=== PATIENT | female | born 1940 | race Caucasian/White ===

== ENCOUNTER 2019-02-24 16:28 | Emergency (ER) | payer MEDICAID, MEDICARE, SELFPAY ==
[2019-02-24 16:30] VITALS: BP 133/74; PULSE 77; RESP 16; TEMP 37.2; O2SAT 98; BMI 25.0
--- NOTE | 2019-02-24 16:31 | RAD_ITS ---
STUDY: X-RAY - LEFT SHOULDER REASON FOR EXAM: Female, 78 years old. Trauma TECHNIQUE: 2 view(s) of the shoulder. COMPARISON: None. FINDINGS: There is a minimally impacted comminuted fracture of the left humeral head and neck. The glenoid labrum appears intact. Normal visualized pulmonary apex. RAD/Shoulder min 2 Views IMPRESSION: Minimally impacted comminuted fracture of the left humeral head and neck. Electronically Signed: Elvin Dallas MD at 16:52 EDT , Service support ,
--- NOTE | 2019-02-24 17:30 | ED.RN ---
SON AURORA NOTIFIED, HE WILL BE IN
--- NOTE | 2019-02-24 17:39 | ED.DCSUM_ITS ---
History of Present Illness Chief Complaint: Upper Extremity Injury Informant: Patient Occurred: Today Mechanism/Context: Fall Current Severity: Moderate Maximum Severity: Severe Worsened by: Palpation or attempt to move Relieved by: Nothing Associated Symptoms: Loss of Funtion. Negative for: Parasthesia, Weakness Narrative: Patient is an elderly [id number] woman who was walking down 2 steps from her porch. She fell onto her left shoulder. She denies head trauma or loss of conscious. She is on no anticoagulant. Denies neck pain. She denies paresthesia, anesthesia or motor weakness presently time of the fall. She denied cardiac respiratory symptoms. She denies black or maroon stool. Tetanus Immunization: 5-10 years Prior similar symptoms: No Recent Illness/Hospitalization: No - Past Medical History (1) History of endocarditis Status: Chronic (2) Liver transplanted Status: Chronic Comment: 1997 (3) Migraine Status: Chronic Past Medical History - Allergies and Home Meds Allergies/Adverse Reactions: Allergies No Known Allergies Allergy (Verified 02/24/19 16:29) Primary Care Physician: Shaq Williamson MD [Primary Care Provider] - Prior records reviewed: Yes Surgical History: - - hysterectomy (with oophorectomy x 1 secondary to DUB), liver transplant in 1997, heart surgery for vegetations post-liver txp, T+A. Lives: Alone Smoking Status: Never smoker Alcohol: None Review of Systems General: Denies: Chills, Fever, Malaise, Sweats Eyes: Denies: Visual changes - bilaterally, Blurred Vision - bilaterally, Diplopia ENT: Denies: Bilateral ear pain Cardiovascular: Denies: Chest pain, Palpitations, Heart racing Respiratory: Denies: Dyspnea, Cough, Sputum, Dyspnea on exertion Gastrointestinal: Denies: Abdominal pain, Nausea, Vomiting Musculoskeletal: Reports: Extremity Pain - Left shoulder pain. Denies: Myalgias, Arthralgias, Neck pain, Back pain, Swelling Skin: Reports: Abrasions. Denies: Rash Neurological: Denies: Headache, Weakness, Parasthesia, Numbness Hematologic: Denies: Easy bruising Physical Exam Vital Signs/Narrative: Vital Signs Temp Pulse Resp BP Pulse Ox 02/24/19 16:30 98.9 F 77 16 133/74 H 98 Inital Vital Signs reviewed: Yes Left Shoulder: Abrasion, Contusion, Deformity, Limited ROM, - - Pain to palpation proximal humerus.. Negative for: Edema, Hematoma Left Humerus: Negative for: Abrasion, Contusion, Deformity, Edema, Hematoma, Limited ROM, - - There is no pain the patient over the lateral medial epicondyle. Is no pain the patient reluctant to process. There is no pain the patient over the radial head. Left Elbow: Negative for: Abrasion, Contusion, Deformity, Edema, Hematoma, Limited ROM, - Left Forearm: Negative for: Abrasion, Contusion, Deformity, Edema, Hematoma, Limited ROM, - Left Wrist: Negative for: Abrasion, Contusion, Deformity, Edema, Hematoma, Limited ROM, - Left Hand: Negative for: Abrasion, Contusion, Deformity, Edema, Hematoma, Limited ROM, - Left Finger: Negative for: Abrasion, Contusion, Deformity, Edema, Hematoma, Limited ROM, - General: Well nourished, Well developed Head: Normocephalic, Atraumatic Eyes: Perrl, EOMI. Negative for: Pale conjunctiva, Scleral icterus, - ENT: No Trauma, Moist Mucous Membranes Neck: Nontender, Full ROM. Negative for: Spinal Tenderness Cardiovascular: Regular rate, Regular rhythm, No murmurs, Normal S1, Normal S2 Respiratory: No distress - Thank you, CTA bilaterally, Chest nontender Skin: Trauma - Abrasion noted for what. Near left shoulder Neurological: Alert, Oriented x3, Cranial nerves II-XII grossly intact, Normal Strength, Normal Sensation, - - Axillary, median, radial and ulnar function intact. Psychological: Normal affect Diagnostic/Tx/Re-eval Chest X-Ray - ED: Read by ED Physician 2 view x-ray left shoulder was obtained which reveals a nondisplaced proximal humeral fracture at the surgical neck. - Medical Decision Making Patient's history and physical exam is consistent with fracture. Will obtain x- ray to determine if there is a fracture versus contusion. Also determine appropriate follow-up. Patient was treated with sling and swath and referred to orthopedics. ED Disposition - Plan for ED Patient: Disposition: Home or Assisted Living Diagnosis: proximal humeral fracture initial encou Instructions: ED Fx Shoulder Prescriptions: Oxycodone [Oxyir] 5 mg PO Q4H PRN PRN 5 Days #30 tab PRN Reason: Shoulder pain Referrals: Shaq Williamson MD [Primary Care Provider] - Lorene Shea DO [STAFF PHYSICIAN] - 5-7 Days
[2019-02-24] MEDS: oxyCODONE 5 MG Tablet PO (18:07)
[2019-02-24 18:35] VITALS: BP 167/88; PULSE 80; RESP 16; O2SAT 100
== END 2019-02-24 18:41 | disposition home or self-care (01) ==
LOC: ED 18:32
PROVIDERS: Emergency Provider Emergency Medicine; Family Provider Internal Medicine; PCP Internal Medicine
DX: S42.215A Unspecified nondisplaced fracture of surgical neck of left humerus, initial encounter for closed fracture (principal); W10.8XXA Fall (on) (from) other stairs and steps, initial encounter; Y93.01 Activity, walking, marching and hiking; Y92.008 Other place in unspecified non-institutional (private) residence as the place of occurrence of the external cause; Z94.4 Liver transplant status
CPT/HCPCS: 73030; 99283

== ENCOUNTER 2020-06-07 09:31 | Observation (INO) | payer MEDICARE, MEDICAID, SELFPAY ==
[2020-06-07] VITALS (8 sets, daily range): BP systolic 124–200; BP diastolic 53–90; PULSE 72–92; RESP 16–22; TEMP 36.6–36.9; O2SAT 96–98; BMI 23.6; BMI 24.3
--- NOTE | 2020-06-07 09:39 | CT_ITS ---
STUDY: CT BRAIN WITHOUT CONTRAST REASON FOR EXAM: Female, 79 years old. DIZZY, N/V X 2-3 HRS HEAD OF ENGLISH, HX MIGRAINES, liver transplant RADIATION DOSAGE (If Supplied By Facility): CTDIvol = ( 44.99 ) mGy, DLP = ( 782.05 ) mGycm TECHNIQUE: Transaxial CT imaging of the brain was performed without administration of intravenous contrast material. Individualized dose optimization techniques were used for this CT. COMPARISON: Comparison is made with prior study dated 03/30/2013. FINDINGS: Normal soft tissue structures. Normal calvarium. There is mild cerebral atrophy with widening of the extra-axial spaces and ventricular dilatation. There are areas of decreased attenuation within the white matter tracts of the supratentorial brain, consistent with microvascular disease changes. Normal basal ganglia and thalami. Normal brainstem. Normal cerebellum. There is no intracranial hemorrhage. There are no findings of an acute ischemic infarction. Atherosclerotic calcification of the cavernous portions of the internal carotid arteries bilaterally. Normal visualized paranasal sinuses. CT/Brain/Head without Contrast IMPRESSION: Chronic involutional changes of the brain. Electronically Signed: Jacobo Garnica, at 10:37 EDT , Service support ,
--- NOTE | 2020-06-07 09:39 | EKG12_ITS ---
Test Reason : N AND VOMIT Blood Pressure : / mmHG Vent. Rate : 066 BPM Atrial Rate : 066 BPM P-R Int : 174 ms QRS Dur : 122 ms QT Int : 464 ms P-R-T Axes : 044 009 068 degrees QTc Int : 486 ms Normal sinus rhythm Right bundle branch block Inferior infarct , age undetermined Nonspecific T wave abnormality Abnormal ECG Confirmed by CHANDANA LICONA, JOSE GUADALUPE ([id number]), electronic news gathering editor CHRISSY AYALA ([id number]) on 06/13/2020 9:12:23 AM Referred By: DC Confirmed By:JOSE GUADALUPE ELLINGTON MD
--- NOTE | 2020-06-07 09:47 | RAD_ITS ---
STUDY: X-RAY CHEST REASON FOR EXAM: Female, 79 years old. Nausea and vomiting with dizziness for 2-3 hours TECHNIQUE: Single AP portable view of the chest. COMPARISON: Comparison is made with prior study dated 03/04/2015. FINDINGS: EKG electrodes are seen. Stable mild increased markings at the lung bases slightly more prominent on the right side suggestive of bibasilar scarring. There is no demonstrated pleural abnormality. Sternal cerclage wires and vascular clips are present from a prior sternotomy and coronary artery bypass graft procedure (CABG). Normal mediastinum and tono. Normal visualized pulmonary arteries. Normal visualized aortic arch and descending thoracic aorta. Normal visualized thoracic spine. There is degenerative osteoarthritis of the bilateral shoulders. Healed fracture of the left surgical neck of the humerus. Healed right rib fractures. There is no demonstrated abnormality of the visualized soft tissue structures of the upper abdomen. RAD/Chest 1 View IMPRESSION: Mild increased markings of the lung bases slightly more prominent on the right side. This is unchanged from prior examination and most likely SCARRING. Electronically Signed: Jacobo Garnica, at 10:16 EDT , Service support ,
[2020-06-07 09:57] LABS: Absolute Lymphocyte Count 1.05 X10^3/uL (0.83-4.51); Absolute Neutrophil Count 4.2 X10^3/uL (2.0-7.7); Basophil# 0.05 X10^3/uL; Basophil% 0.8 % (0-1); Eosinophil# 0.14 X10^3/uL; Eosinophils% 2.4 % (0-5); Hematocrit 43.5 % (37-47); Hemoglobin 14.1 g/dL (12.0-15.0); Lymphocyte # 1.05 X10^3/ul (4.0); Lymphocyte % 17.6 % (19-41); Mean Corp Hgb Conc 32.4 g/dL (32-36); Mean Corpuscular Hgb 30.7 pg (27.0-32.0); Mean Corpuscular Volume 94.8 fL (81-99); Monocyte# 0.52 X10^3/uL; Monocyte% 8.7 % (0-10); NRBC Flagged by Analyzer 0 % (0-5); Neutrophil # 4.17 X10^3/uL (2.7-7.7); Neutrophil % 70.2 % (47-70); Platelet Count 168 K/mm3 (150-450); RBC Distribution Width CV 14.2 % (11.6-14.6); RBC Distribution Width SD 48.9 fl (35.1-43.9); Red Blood Count 4.59 M/mm3 (4.2-5.4)
[2020-06-07] MEDS: Ondansetron 4 MG/2 ML Vial IV (09:58)
[2020-06-07] MEDS: Labetalol (Compound) 20 MG/4 ML SYRINGE 10 MG IV (09:58)
[2020-06-07 10:10] LABS: Prothrombin Time (Protime)PT. 12.4 SECONDS (11.7-14.9)
[2020-06-07 10:11] LABS: Bacteria 0 SEEN /hpf (None Seen); Mucous, Urine 0 SEEN /hpf (<or=2+); Red Blood Cells-Urine 0 SEEN /hpf (0-5); Squamous Epithelial Cells - UA 0 SEEN /hpf (5-10); White Blood Cells 0 SEEN /hpf (0-5)
[2020-06-07 10:12] LABS: Partial Thromboplast Time 29.2 Seconds (24.1-36.2)
[2020-06-07 10:12] LABS: Color, Urine Yellow (Yellow); Glucose, Dipstick Normal (Normal); Ketone-Dipstick Negative (Negative); Leukocyte Esterase-Dipstick Negative /ul (Negative); Nitrite-Dipstick Negative (Negative); Occult Blood-Urine Negative /ul (Negative); Protein-Dipstick Negative (Negative); Urine Bilirubin Dipstick Negative (Negative); Urine Clarity Clear (Clear); Urine Urobilinogen Normal (Normal)
[2020-06-07 10:17] LABS: Anion Gap 4 (5-15); BUN 23 mg/dL (7-18); BUN/Creat Ratio 20.4 RATIO (10-20); Chloride 108 mmol/L (98-107); Creatinine, Serum 1.13 mg/dL (0.55-1.02); EST Glomerular Filtration Rate 49 mL/min (>60); Est Glom Filt Rate - Afr Amer 59 mL/min (>60); Estimated Creatinine Clearance 32.67 ml/min; Glucose 102 mg/dL (74-106); Potassium 4.7 mmol/L (3.5-5.1); Sodium Level 139 mmol/L (136-145)
--- NOTE | 2020-06-07 11:17 | NURSING ---
DR SOTO IN ROOM
--- NOTE | 2020-06-07 11:24 | ED.VISSUMM ---
- ER Visit Summary Date of Service: 06/07/20 Chief Complaint: Dizziness History of Present Illness: The patient is a 79 F who woke up this morning with dizziness. She felt like the room was spinning. Associated with nausea and vomiting. She had difficulty walking. Denied any vision changes, facial droop, speech changes, weakness, numbness. Physical Examination: Blood pressure 200/90. Otherwise vitals unremarkable. HEENT exam unremarkable. Heart regular. Lungs clear. Cranial nerves grossly intact. Normal strength and sensation. Normal cerebellar testing. Test Results: EKG showed sinus rhythm at a rate of [address] and T wave changes. Right bundle branch block pattern noted. Chest x-ray shows chronic changes. CT brain shows chronic changes. CBC normal. BMP unremarkable. Coags normal. Urinalysis normal. Troponin normal. Emergency Department Course and Treatment: Patient treated with IV fluids, Zofran, labetalol. Repeat blood pressure 140/65. Patient still has some dizziness and headache. Given her age, symptoms, safety concerns, the hospitalist was contacted for further inpatient evaluation. Treatment Plan: As above Disposition: PCU Impression: Vertigo, hypertension This note was generated with [employer] dictation software. It may contain incorrect words, spelling, and punctuation that were not noted in review of the chart prior to signing ED Disposition - Plan for ED Patient: Referrals: Shaq Williamson MD [Primary Care Provider] -
--- NOTE | 2020-06-07 11:27 | NURSING ---
PCU OBS BRITTANY VERTIGO, HYPERTENSION
--- NOTE | 2020-06-07 12:33 | HP.PCM_ITS ---
Problem List (1) Vertigo Status: Acute History of Present Illness Date of Admission: 06/07/20 Chief Complaint: dizziness The patient is a 79 year old F awoke with dizziness this AM. Worse with movement. Never had this before. Some nausea. Presented to ED where she had a head CT, that was negative. Currently feeling somewhat better. [] Past Medical History Past Medical History (Chronic Problems): Chronic Problems Tachycardia (Chronic) History of endocarditis (Chronic) Migraine (Chronic) Generalized osteoarthritis (Chronic) Anisocoria (Chronic) Liver transplanted (Chronic) 1997 Allergies No Known Allergies Allergy (Verified 06/07/20 09:37) Home Medications: Ambulatory Orders Medication Instructions Recorded Tacrolimus Anhydrous [Prograf] 1 mg PO BID 09/09/13 Metoprolol Succinate 50 mg PO DAILY 06/07/20 Surgical History: - - hysterectomy (with oophorectomy x 1 secondary to DUB), liver transplant in 1997, heart surgery for vegetations post-liver txp, T+A. 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: dysfunctional uterine bld Smoking Status: Never smoker Tobacco Use: Non-smoker Alcohol: None - *Family History Maternal History Items: Heart Disease Review of Systems Constitutional: Denies: Anorexia, Chills, Fever, Night Sweats Eyes: Denies: Blurred vision, Double vision HEENT: Denies: Head Aches, Sinus Congestion, Sinus Drainage Cardiovascular: Denies: Chest Pain, Palpitations Respiratory: Denies: Cough, Shortness of breath at rest, Sputum production Gastrointestinal: Denies: Abdominal Pain, Nausea, Vomiting Genitourinary: Denies: Dysuria Musculoskeletal: Denies: Joint Pain, Joint Tenderness Skin: Denies: Dryness, Jaundice Neurological: Reports: Balance problems, Headaches. Denies: Double vision, Numbness Psychiatric: Denies: Anxiety, Depression Hematologic/ Lymphatic: Denies: Easy Bruising, Easy Bleeding, Hx of blood clot Comment: All review of systems were negative except as mentioned above in the history of present illness and the other review of systems. VTE Information - Inpt Only VTE Present on Admission: No VTE Mechan Device Prophylaxis: None VTE Pharm Prophylaxis ordered?: No Reason prophylaxis not ordered:: Treatment Not Indicated Patient Problems: Active and Suspected Problems Vertigo (Acute) - Physical Exam Vitals/I&O's: Vital Signs Temp Pulse Resp BP Pulse Ox 36.6 C 80 16 140/65 H 98 06/07/20 11:24 06/07/20 11:24 06/07/20 11:24 06/07/20 11:24 06/07/20 11:24 Oxygen Delivery Method Room Air Weight: 53 kg Body Mass Index (BMI) 23.6 Intake and Output for Last 24 Hours 06/05/20 06/06/20 06/07/20 23:59 23:59 23:59 Intake Total 500 / 500 Balance 500 / 500 General: Alert, Oriented x3, Cooperative, No apparent distress HEENT: Atraumatic, PERRLA, EOMI - lateral nystagmus, Normocephalic Oral: Moist Mucosa, No Gingival or Mucosal Lesions/ Ulcerations Neck: No Nodes, Thyroid Normal Size and Texture Lungs: Clear to auscultation, Normal air movement, No rhonchi, No wheeze, No rales, Diminished Cardiovascular: Regular rate, Regular Rhythm, Normal S1, Normal S2, No murmurs Abdomen: Bowel Sounds Present, Soft, Non Tender, Non-Distended, No Hepato- splenomegaly Extremities: No edema, No Calf Tenderness Skin: No rashes, No breakdown Musculoskeletal: No Tenderness to Palpation of Joints or Extremities, No Muscle Wasting Neurological: Cranial nerves II-XII grossly intact, Motor Exam 5/5 strength throughout Psych/Mental Status: Normal Affect, Appropriate Laboratory Results 06/07/20 09:30: Urine Color Yellow, Urine Clarity Clear, Urine pH 8.0, Ur Specific [place] 1.010, Urine Protein Negative, Urine Glucose (UA) Normal, Urine Ketones Negative, Urine Occult Blood Negative, Urine Nitrite Negative, Urine Bilirubin Negative, Urine Urobilinogen Normal, Ur Leukocyte Esterase Negative, Urine RBC 0 SEEN, Urine WBC 0 SEEN, Ur Squamous Epith Cells 0 SEEN, Urine Bacteria 0 SEEN, Urine Mucus 0 SEEN 06/07/20 09:50: WBC 6.0, RBC 4.59, Hgb 14.1, Hct 43.5, MCV 94.8, MCH 30.7, MCHC 32.4, RDW Std Deviation 48.9 H, RDW Coeff of Noe 14.2, Plt Count 168, MPV 10.0, Immature Gran % (Auto) 0.300, Neut % (Auto) 70.2 H, Lymph % (Auto) 17.6 L, Mcleod % (Auto) 8.7, Eos % (Auto) 2.4, Baso % (Auto) 0.8, Absolute Neuts (auto) 4.2, Absolute Lymphs (auto) 1.05, Nucleated RBC % 0 06/07/20 09:50: PT 12.4, INR 1.0, APTT 29.2 06/07/20 09:50: Sodium 139, Potassium 4.7, Chloride 108 H, Carbon Dioxide 27.0, Anion Gap 4 L, BUN 23 H, Creatinine 1.13 H, Estim Creat Clear Calc 32.67, Est GFR (MDRD) Af Amer 59 L, Est GFR (MDRD) Non-Af 49 L, BUN/Creatinine Ratio 20.4 H , Glucose 102, Calcium 9.0, Troponin I < 0.015 EKG: NSR, incomplete RBBB Clinical Impression(s) from Imaging Studies Brain CT 06/07/20 09:39 IMPRESSION: Chronic involutional changes of the brain. Electronically Signed: Jacobo Garnica, at 10:37 EDT , Service support , Chest X-Ray 06/07/20 09:47 IMPRESSION: Mild increased markings of the lung bases slightly more prominent on the right side. This is unchanged from prior examination and most likely SCARRING. Electronically Signed: Jacobo Garnica, at 10:16 EDT , Service support , Current Medications Sodium Chloride () 500 mls @ 999 mls/hr IV .Q31M ONE Last Infusion: 06/07/20 11:34 Dose: Infused Documented by: Assessment/Plan All Active Problems Vertigo (Acute) Chest pain (Acute) Cephalalgia (Resolved) 1. acute vertigo: suspect BPPV. add PRN meclizine. PT for vestibular rehab. No evidence of CVA on CT. No additional CVA work up at this time. 2. VTE prophylaxis: not indicated given observation status. 3. Advanced care planning: DW patient, full code. OBSV E&M: [id number] Initial observation care L3
[2020-06-07] MEDS: Acetaminophen 325 MG Tablet 650 MG PO ×2 (14:58→21:14)
[2020-06-07] MEDS: Tacrolimus Anhydrous 1 MG Capsule PO (21:14)
[2020-06-08 03:00] VITALS: PULSE 65
[2020-06-08 03:10] VITALS: BP 123/56; PULSE 71; RESP 16; TEMP 36.8; O2SAT 97
[2020-06-08] MEDS: Acetaminophen 325 MG Tablet 650 MG PO (05:26)
[2020-06-08 07:00] VITALS: PULSE 92
[2020-06-08 09:10] VITALS: BP 131/62; PULSE 74; RESP 18; TEMP 36.9; O2SAT 95
[2020-06-08 09:22] VITALS: BP 131/62; PULSE 74
[2020-06-08] MEDS: Metoprolol(XL)Succ 50 MG Tablet PO (09:22)
[2020-06-08] MEDS: Tacrolimus Anhydrous 1 MG Capsule PO (09:22)
--- NOTE | 2020-06-08 10:27 | DCINST_ITS ---
- Discharge Diagnoses Current Active Problems: Current Active and Chronic Problems Vertigo (Acute) You will use the following diet at home:: No restrictions Call your doctor if you observe: - - recurrent dizziness Allergies/Adverse Reactions: Allergies No Known Allergies Allergy (Verified 06/07/20 09:37) Medications to take at Discharge Tacrolimus Anhydrous [Prograf] 1 mg PO BID 09/09/13 Aspirin [Aspirin, Baby] 1 tab PO DAILY 06/07/20 Metoprolol Succinate 50 mg PO DAILY 06/07/20 Meclizine HCl [Antivert] 25 mg PO 4X/DAY PRN PRN #20 tab 06/08/20 The following prescriptions were given: Meclizine HCl [Antivert] 25 mg PO 4X/DAY PRN PRN #20 tab PRN Reason: Vertigo Transmission Status[facility] Orders to be completed after discharge: Physical Therapy Evaluation Time Frame: 2 Weeks, Location: None Selected Primary Care Physician: Shaq Williamson MD [Primary Care Provider] - Within 2 Weeks Test Results: Test results from this visit will be discussed in further detail at your follow- up appointment, if applicable. Proposed Discharge Date: 06/08/20
--- NOTE | 2020-06-08 10:28 | DS.PCM_ITS ---
Discharge Date and Diagnosis - Problem List Patient Problems: Active and Suspected Problems Vertigo (Acute) Date of Admission: 06/07/20 Date of Discharge: 06/08/20 - Primary Discharge Diagnosis Acute Problems: Active Problems Vertigo (Acute) - Secondary Discharge Diagnosis Chronic Problems: Chronic Problems Tachycardia (Chronic) History of endocarditis (Chronic) Migraine (Chronic) Generalized osteoarthritis (Chronic) Anisocoria (Chronic) Liver transplanted (Chronic) 1997 Hospital Course and Treatment Imaging Results: Clinical Impression(s) from Imaging Studies Brain CT 06/07/20 09:39 IMPRESSION: Chronic involutional changes of the brain. Electronically Signed: Jacobo Garnica, at 10:37 EDT , Service support , Chest X-Ray 06/07/20 09:47 IMPRESSION: Mild increased markings of the lung bases slightly more prominent on the right side. This is unchanged from prior examination and most likely SCARRING. Electronically Signed: Jacobo Garnica, at 10:16 EDT , Service support , Operations: None Procedures: None Summary of Care Provided: The patient is a 79 year old F with acute onset vertigo that began early in the morning on the fourth. Patient was just having dizziness. Presented to the emergency room where she had a head CT that showed no acute process. Patient still having ongoing symptoms and patient was subsequently admitted for further monitoring. Exam was consistent with benign paroxysmal positional vertigo and had a positive [place]-Hallpike. Symptoms did improve though are still persistent later in the day on the fourth and so the decision was to observe the patient overnight. Today the patient feels much better no further dizziness just feels tired. Patient can follow-up with physical therapy as needed for vestibular rehab. Patient will be given a prescription for meclizine to take as needed for vertigo. Is explained to the patient the process involved in regards to benign paroxysmal positional vertigo and the treatment modalities. Patient advised that the meclizine would not fix the vertigo but may make her symptoms more tole rable. On exam, patient does continue to have nystagmus on the right but it is resolved on the left. She is awake alert and oriented. No acute distress. [] Patient Problems: Active and Suspected Problems Vertigo (Acute) - Physical Exam Vitals/I&O's: Vital Signs Temp Pulse Resp BP Pulse Ox 36.9 C 74 18 131/62 H 95 06/08/20 09:10 06/08/20 09:22 06/08/20 09:10 06/08/20 09:22 06/08/20 09:10 Oxygen Delivery Method Room Air Weight: 50.9 kg Body Mass Index (BMI) 24.3 Intake and Output for Last 24 Hours 06/06/20 06/07/20 06/08/20 23:59 23:59 23:59 Intake Total 890 / 890 100 / 100 Balance 890 / 890 100 / 100 Current Medications Acetaminophen (Tylenol) 650 mg PO Q6H PRN PRN PRN Reason: Pain Score 1-10/Temp > 100.7 F Last Admin: 06/08/20 05:26 Dose: 650 mg Documented by: Sodium Chloride () 500 mls @ 999 mls/hr IV .Q31M ONE Last Infusion: 06/07/20 11:34 Dose: Infused Documented by: Sodium Chloride () 250 mls @ 15 mls/hr IV .[id number] PRN PRN Reason: Saline Flush Sodium Chloride () 250 mls @ 15 mls/hr IV .[id number] PRN PRN Reason: Additional IVPB Infusion Meclizine HCl (Antivert) 25 mg PO 4X/DAY PRN PRN PRN Reason: Vertigo Metoprolol Succinate (Toprol Xl (Beta Elli)) 50 mg PO DAILY [facility] Last Admin: 06/08/20 09:22 Dose: 50 mg Documented by: Ondansetron HCl (Zofran) 4 mg IV Q8H PRN PRN PRN Reason: NAUSEA/VOMITING Sodium Chloride () 10 - 40 ml IV UD PRN PRN Reason: SALINE FLUSH Tacrolimus (Prograf) 1 mg PO BID [facility] Last Admin: 06/08/20 09:22 Dose: 1 mg Documented by: Discharge Diet: No Restrictions Discharge Activity: Return to Normal Activity Call your doctor if you observe: - - recurrent dizziness Home Medications: Medications to take at Discharge Tacrolimus Anhydrous [Prograf] 1 mg PO BID 09/09/13 Aspirin [Aspirin, Baby] 1 tab PO DAILY 06/07/20 Metoprolol Succinate 50 mg PO DAILY 06/07/20 Meclizine HCl [Antivert] 25 mg PO 4X/DAY PRN PRN #20 tab 06/08/20 Following Prescriptions Were Given to Patient: Meclizine HCl [Antivert] 25 mg PO 4X/DAY PRN PRN #20 tab PRN Reason: Vertigo Transmission Status: Pending to [facility] Other Amb Orders: Physical Therapy Evaluation Time Frame: 2 Weeks, Location: None Selected Primary Care Physician: Shaq Williamson MD [Primary Care Provider] - Within 2 Weeks Disposition: Home Minutes spent on discharge:: 289 Patient Condition:: Good Medical Necessity - Tobacco Use Smoking Status: Never smoker Tobacco Use: Non-smoker Meaningful Use Info Meaningful Use Diagnoses (Choose all that apply): None applicable OBSV E&M: 29858 Observation care discharge
--- NOTE | 2020-06-08 10:42 | CASEMGMT ---
SHE LESLIE NOTE: Pt being discharged. Per Dr Ziegler, pt would benefit from vestibular therapy. RN CM to room to talk with pt/discuss discharge planning. Pt resting in bed and @ bedside. Introduced self and role of SHE LESLIE. Pt states she lives in a one-story home w/3 steps to enter. States she has a cane and a shower chair. Denies needing any additional DME. Denies need for HHC. Pt made aware of Dr Ziegler's recommendations for vestibular therapy and pt agreeable. She states she has went to [facility] in the past. Call placed to [facility] and they stated they do not specialize in Vestibular therapy. Pt made aware and made aware [facility] does specialize in this. She states she would like to go to [facility]. Script for PT/vestibular therapy obtained from Dr Ziegler and faxed to [facility] at this time. Pt states her may not be able/want to take her to all of her appts @ [facility]. She was made aware of [facility] Van transportation and provided with there contact information. Pt denies having any concerns w/going home @ discharge and denies further needs. She voices appreciation of care received @ [facility]. Oz MCMULLEN RN, CM
--- NOTE | 2020-06-08 10:46 | PHA.DC.MC ---
Pharmacy Service has performed discharge medication reconciliation and counseling for this patient. 1. MECLIZINE 25MG 1T PO 4X/DAY PRN VERTIGO The patient's discharge medication list was reviewed for discrepancies and discrepancies were resolved. Home Medications Tacrolimus Anhydrous [Prograf] 1 mg PO BID 09/09/13 Aspirin [Aspirin, Baby] 1 tab PO DAILY 06/07/20 Metoprolol Succinate 50 mg PO DAILY 06/07/20 Meclizine HCl [Antivert] 25 mg PO 4X/DAY PRN PRN #20 tab 06/08/20 The patient was counseled on the following discharge medications and changes in medications for homegoing were reviewed. The Reason for Use, instructions for use, and potential side effects were reviewed for all new medications. The patient's questions regarding all of their medications were answered. The patient was able to verbally demonstrate an understanding of their discharge medications. Patient was counseled by retail pharmacy technicianGus.
[2020-06-08 11:17] VITALS: BP 131/62; PULSE 74; RESP 18; TEMP 36.9; O2SAT 95
== END 2020-06-08 10:27 | disposition home or self-care (01) ==
LOC: ED 10:51 → PCU 11:51
PROVIDERS: Emergency Provider Emergency Medicine; PCP Internal Medicine
DX: R42 Dizziness and giddiness (principal); M15.9 Polyosteoarthritis, unspecified; I10 Essential (primary) hypertension; I45.10 Unspecified right bundle-branch block; R94.31 Abnormal electrocardiogram [ECG] [EKG]; H55.00 Unspecified nystagmus; R00.0 Tachycardia, unspecified; R11.2 Nausea with vomiting, unspecified; Z94.4 Liver transplant status; Z79.899 Other long term (current) drug therapy; Z79.82 Long term (current) use of aspirin; Z86.79 Personal history of other diseases of the circulatory system; R26.2 Difficulty in walking, not elsewhere classified; R07.9 Chest pain, unspecified
CPT/HCPCS: 70450; 71045; 80048; 81001; 84484; 85025; 85610; 85730; 93005; 96361; 96374; 96375; 97110; 97161; 99218; 99285; J7040; A4216; G0378; J2405

== ENCOUNTER → 2020-06-27 11:54 | Outpatient (CLI) | payer MEDICARE, MEDICAID, SELFPAY ==
[2020-06-07 12:41] VITALS: BMI 24.3
[2020-06-27 15:59] LABS: Absolute Neutrophil Count 2.3 X10^3/uL (2.0-7.7); Basophil# 0.03 X10^3/uL; Basophil% 0.7 % (0-1); Eosinophil# 0.12 X10^3/uL; Eosinophils% 2.7 % (0-5); Hematocrit 44.2 % (37-47); Hemoglobin 14.3 g/dL (12.0-15.0); Lymphocyte % 29.6 % (19-41); Mean Corp Hgb Conc 32.4 g/dL (32-36); Mean Corpuscular Hgb 30.6 pg (27.0-32.0); Mean Corpuscular Volume 94.4 fL (81-99); Monocyte% 13.7 % (0-10); NRBC Flagged by Analyzer 0 % (0-5); Neutrophil # 2.33 X10^3/uL (2.7-7.7); Neutrophil % 53.1 % (47-70); Platelet Count 197 K/mm3 (150-450); RBC Distribution Width CV 14.2 % (11.6-14.6); RBC Distribution Width SD 49.2 fl (35.1-43.9); Red Blood Count 4.68 M/mm3 (4.2-5.4); White Blood Count 4.4 K/mm3 (4.4-11.0)
[2020-06-27 16:27] LABS: ALB/GLOB Ratio 0.9 RATIO (0.9-2.4); AST(SGOT) 40 U/L (15-37); Alanine Aminotransfer ALT/SGPT 30 U/L (13-56); Albumin, Serum 3.6 g/dL (3.2-5.0); Alkaline Phosphatase 67 U/L (45-117); Anion Gap 4 (5-15); BUN 24 mg/dL (7-18); BUN/Creat Ratio 17.5 RATIO (10-20); Calcium,Total 9.1 mg/dL (8.5-10.1); Chloride 107 mmol/L (98-107); Creatinine, Serum 1.37 mg/dL (0.55-1.02); EST Glomerular Filtration Rate 39 mL/min (>60); Est Glom Filt Rate - Afr Amer 48 mL/min (>60); Globulin 4.1 g/dL (2.2-4.2); Glucose 91 mg/dL (74-106); Potassium 4.2 mmol/L (3.5-5.1); Protein, Total 7.7 g/dL (6.4-8.2); Sodium Level 137 mmol/L (136-145)
== END ==
PROVIDERS: PCP Internal Medicine; Referring Provider Dermatology Pediatric Dermatology; Visit Provider Dermatology Pediatric Dermatology
DX: L20.89 Other atopic dermatitis (principal); L28.1 Prurigo nodularis; Z79.899 Other long term (current) drug therapy
CPT/HCPCS: 36415; 80053; 85025

== ENCOUNTER 2020-07-12 12:51 | Outpatient (RCR) | payer MEDICARE, SELFPAY ==
[2020-06-07 12:41] VITALS: BMI 24.3
--- NOTE | 2020-07-12 13:52 | HP.PTEVAL_ITS ---
Patient's Visit Information DANIEL ARREOLA is a 79 year old F referred to Physical Therapy by Dr. 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 Date of Evaluation: 07/12/20 Physical Therapist: Shad Alvarez, DPT, OCS, CSCS - Visit Plan Frequency: 1x/Week Duration: 4-6 Weeks Plan: weekly x 2-6 for progression of adaptationa nd habituation ex as needed. - Subjective Dizzy for 3 weeks. Got up out of bed and got very dizzy. Called squad, went to ER adn had multiple scans of head and heart adn no problems. dizzyness lasted for a day or so. In hospital for 2 days and got better. Moved only with nurses. Home two days later adn was fine. Was good for 2 weeks. Saw [place] who checked crystals and was good. Dizzyness came back two days ago. Got out of bed and spun and lasted short time. Currently head hurts with quick movements. Still spins for unknown reason. Sleep is OK right now. Not employed. Spends day taking care of house and yard and has not been real good at that lately. Basic aDLs are getting done. Scared to do some things as she does nto wish to get dizzy. No neuropathy, no falls, no pain. Head feels heavy all the time. - Objective Walks slow but steady, hesitant to move head. Trasnfers normal bed and chair. Steps are reciprocal with one rail. Cervical aROM is stiff but painfree and functional. - B hallpike makayla. - roll test. Oculaomotor: no nystagmus with gaze or head shake. - skew eye deviations. - ocular tilt. Pursuit and saccades are slow and asymptomatic. VOR is slow and challenging quality martinez for patinet but no symptoms increase. + L head thrust slightly. - Balance Scores Functional Gait Assessment Score: 24 % Disability: 20.0000 - Goals Goal 1:: Pt feel 95% back to normal and no spinning. Goal Time Frame: 4-6 Weeks Goal 2:: I management of condition and back to all normal activities including outdoor work. 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 For the Purpose of:: To increase tolerance to activity/condition/position Thank you for the opportunity to evaluate your patient. For Medicare and Medicare HMO plans, please review the plan of care and approve it. It will need to be FAXED BACK to us at [phone] for Medicare purposes. For Medicare only, by signing this I certify the plan of care. Please let me know if there are questions or concerns regarding this plan of care. Physician Si gnature: Date:
--- NOTE | 2020-09-20 15:28 | HP.PT.NRP ---
DANIEL ARREOLA was seen in my office for initial evaluation on 07/12/20. The following Plan of Care was established for this patient: Initial Frequency: 1x/Week Initial Duration: 4-6 Weeks Patient/Client Instruction: Educate patient on: Condition, Plan of Care For the Purpose of:: To increase tolerance to activity/condition/position For the Purpose of:: To increase tolerance to activity/condition/position This patient was last seen in our office 07/12/20. Pertinent comments regarding their Physical therapy will appear below: Pt seen for one evaluation and POC established/HEP given. She was to return weekly for 4-6 weeks but did not return. at this point, it has been over 3 months and I will discontinue due to nonattendance. At this point I will be discontinuing this patient from physical therapy. I would be happy to see this patient again in the future if found appropriate by the physician. Thank you! Shad Alvarez, DPT, OCS, CSCS
== END 2020-07-12 19:00 | disposition home or self-care (01) ==
LOC: PT 12:51
PROVIDERS: PCP Internal Medicine; Referring Provider Otolaryngology; Visit Provider Otolaryngology
DX: R42 Dizziness and giddiness (principal)
CPT/HCPCS: 97162

== ENCOUNTER 2020-10-23 16:15 | Emergency (ER) | payer MEDICARE, SELFPAY ==
[2020-06-07 12:41] VITALS: BMI 24.3
[2020-10-23 16:16] VITALS: BP 184/84; PULSE 99; RESP 18; TEMP 37.3; O2SAT 95; BMI 24.4
[2020-10-23 16:18] VITALS: BP 184/84; PULSE 99; RESP 18; TEMP 37.3; O2SAT 95
--- NOTE | 2020-10-23 16:26 | ED.VIS.GEN ---
History of Present Illness Chief Complaint: Chest Pain Narrative: Patient is an 79-year-old female who presents with generalized malaise. She states she just has not felt well for about 1 week but it was much worse this morning. She complains of generalized weakness. She complains of headache and neck pain. She denies fevers vomiting or diarrhea. Initially she had denied any pain except her head and neck. Triage note had noted she complained of chest pain radiating through to the back. When specifically asked about this she states that she does also have some pain in the middle of her upper back but denies chest pain. She does state that at times her chest feels heavy or that her breathing is a little heavy. She denies congestion rhinorrhea sore throat. She denies any cough. She denies sick contacts. She is a liver transplant patient. Past Medical History - Allergies and Home Meds Allergies/Adverse Reactions: Allergies No Known Allergies Allergy (Verified 10/23/20 16:18) Primary Care Physician: Shaq Williamson MD [Primary Care Provider] - Past Medical History: - - Liver transplant, hypertension Surgical History: - - hysterectomy (with oophorectomy x 1 secondary to DUB), liver transplant in 1997, heart surgery for vegetations post-liver txp, T+A. Smoking Status: Never smoker - Family History Maternal Family History: Reports: Heart Disease Review of Systems All systems negative except as indicated General: Denies: Fever Eyes: Denies: Visual changes - bilaterally ENT: Denies: Bilateral ear pain Cardiovascular: Denies: Chest pain Respiratory: Reports: Dyspnea. Denies: Cough Gastrointestinal: Denies: Abdominal pain, Nausea, Vomiting, Diarrhea Musculoskeletal: Reports: Neck pain, Back pain. Denies: Myalgias, Arthralgias Skin: Denies: Rash Neurological: Reports: Headache Hematologic: Denies: Easy bruising Allergy: Denies: Uticaria Physical Exam Vital Signs/Narrative: Vital Signs Temp Pulse Resp BP Pulse Ox 10/23/20 16:16 99.1 F 99 18 184/84 H 95 Inital Vital Signs reviewed: Yes General: Well nourished Head: Normocephalic Eyes: EOMI ENT: Moist mucous membranes Neck: Supple Cardiovascular: Regular rate, Regular rhythm Respiratory: No distress, CTA bilaterally. 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 Electronically Signed: Alex Williamson MD at 17:05 EST , Service support , 10/23/20 16:41 Chest 1 View (Portable) [RAD] Stat 10/23/20 17:35 Mucosa - Nose SARS-CoV-2 Antigen (Rapid) - Final Laboratory Results 10/23/20 10/23/20 10/23/20 16:20 16:20 17:38 WBC 6.4 RBC 4.62 Hgb 14.1 Hct 43.5 MCV 94.2 MCH 30.5 MCHC 32.4 RDW Std Deviation 49.0 H RDW Coeff of Noe 14.2 Plt Count 197 MPV 11.0 Immature Gran % (Auto) 0.200 Neut % (Auto) 66.8 Lymph % (Auto) 17.6 L [place] % (Auto) 14.2 H Eos % (Auto) 0.6 Baso % (Auto) 0.6 Absolute Neuts (auto) 4.3 Absolute Lymphs (auto) 1.12 Nucleated RBC % 0 Sodium 137 Potassium 4.3 Chloride 106 Carbon Dioxide 26.0 Anion Gap 5 BUN 26 H Creatinine 1.43 H Estim Creat Clear Calc 22.16 Est GFR (MDRD) Af Amer 45 L Est GFR (MDRD) Non-Af 37 L BUN/Creatinine Ratio 18.2 Glucose 183 H Calcium 8.9 Total Bilirubin 0.60 AST 25 ALT 20 Alkaline Phosphatase 76 Troponin I < 0.015 Total Protein 8.1 Albumin 3.4 Globulin 4.7 H Albumin/Globulin Ratio 0.7 L Urine Color Yellow Urine Clarity Sl Cldy Urine pH 5.0 Ur Specific [place] 1.015 U Specif Grav (Refrac) TNP Urine Protein Negative Urine Glucose (UA) 100 H Urine Ketones Negative Urine Occult Blood Negative Urine Nitrite Negative Urine Bilirubin Negative Urine Urobilinogen Normal Ur Leukocyte Esterase 100 H Urine RBC 0 SEEN Urine WBC 5-10 SEEN Ur Squamous Epith Cells 0-5 SEEN Urine Bacteria 0 SEEN Urine Mucus 0 SEEN - Medical Decision Making Laboratory studies as above notable for mild pyuria with 5-10 WBCs in the urine. On reevaluation patient does states she feels similar to when she has had bladder infections previously and she does have some suprapubic pressure/discomfort. EKG shows sinus tachycardia at a rate of 108 with inferior Q waves and right bundle branch block. This is similar to prior. She was given Tylenol for pain. On reevaluation she states she feels better and wants to go home. Will discharge with a prescription for Keflex. She understands to return for new or worsening symptoms otherwise to follow-up as an outpatient. ED Disposition - Plan for ED Patient: Disposition: Home or Assisted Living Diagnosis: UTI (urinary tract infection) Instructions: ED Bladder Infection, Female (Adult) Prescriptions: Cephalexin [Keflex] 500 mg PO Q12 #14 cap Prescription Printed Referrals: Shaq Williamson MD [Primary Care Provider] -
--- NOTE | 2020-10-23 16:29 | EKG12_ITS ---
Test Reason : CP Blood Pressure : / mmHG Vent. Rate : 108 BPM Atrial Rate : 108 BPM P-R Int : 180 ms QRS Dur : 110 ms QT Int : 360 ms P-R-T Axes : 037 -07 021 degrees QTc Int : 482 ms Sinus tachycardia Incomplete right bundle branch block Inferior infarct , age undetermined, cannot be excluded Abnormal ECG Confirmed by CHANDANA LICONA, JOSE GUADALUPE ([id number]), advertising editor CHRISSY AYALA ([id number]) on 10/26/2020 11:08:02 AM Referred By: [email or web address] Confirmed By:JOSE GUADALUPE ELLINGTON MD
[2020-10-23] MEDS: 0.9% Normal Saline 1,000 ML 1000 ML IV (16:34)
--- NOTE | 2020-10-23 16:41 | RAD_ITS ---
STUDY: X-RAY CHEST REASON FOR EXAM: Female, 79 years old. CHEST PAIN RADIATING TO MID/ LOWER RIGHT BACK X3 DAYS -- HX OF HTN, NONALCOHOLIC CIRRHOSIS, HEPATITIS AND LIVER TRANSPLANT TECHNIQUE: Single AP portable view of the chest. COMPARISON: June 07, 2020. FINDINGS: There are mild to moderate and chronic interstitial fibrotic changes of the lungs. Chronic hyperinflation and cystic emphysematous changes of the lungs. There is no demonstrated pleural abnormality. Sternal cerclage wires and vascular clips are present from a prior sternotomy and coronary artery bypass graft procedure (CABG). Normal heart size. Normal mediastinum and tono. Normal visualized pulmonary arteries. There is atherosclerotic calcification of the aortic arch with tortuosity. Stable visualized osseous structures. There is no demonstrated abnormality of the visualized soft tissue structures of the upper abdomen. 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
[2020-10-23 17:23] LABS: Absolute Lymphocyte Count 1.12 X10^3/uL (0.83-4.51); Absolute Neutrophil Count 4.3 X10^3/uL (2.0-7.7); Basophil# 0.04 X10^3/uL; Basophil% 0.6 % (0-1); Eosinophil# 0.04 X10^3/uL; Eosinophils% 0.6 % (0-5); Hematocrit 43.5 % (37-47); Hemoglobin 14.1 g/dL (12.0-15.0); Lymphocyte # 1.12 X10^3/ul (4.0); Lymphocyte % 17.6 % (19-41); Mean Corp Hgb Conc 32.4 g/dL (32-36); Mean Corpuscular Hgb 30.5 pg (27.0-32.0); Mean Corpuscular Volume 94.2 fL (81-99); Monocyte% 14.2 % (0-10); NRBC Flagged by Analyzer 0 % (0-5); Neutrophil # 4.25 X10^3/uL (2.7-7.7); Neutrophil % 66.8 % (47-70); Platelet Count 197 K/mm3 (150-450); RBC Distribution Width CV 14.2 % (11.6-14.6); Red Blood Count 4.62 M/mm3 (4.2-5.4); White Blood Count 6.4 K/mm3 (4.4-11.0)
[2020-10-23 17:25] LABS: ALB/GLOB Ratio 0.7 RATIO (0.9-2.4); AST(SGOT) 25 U/L (15-37); Alanine Aminotransfer ALT/SGPT 20 U/L (13-56); Albumin, Serum 3.4 g/dL (3.2-5.0); Alkaline Phosphatase 76 U/L (45-117); Anion Gap 5 (5-15); BUN 26 mg/dL (7-18); BUN/Creat Ratio 18.2 RATIO (10-20); Calcium,Total 8.9 mg/dL (8.5-10.1); Chloride 106 mmol/L (98-107); Creatinine, Serum 1.43 mg/dL (0.55-1.02); EST Glomerular Filtration Rate 37 mL/min (>60); Est Glom Filt Rate - Afr Amer 45 mL/min (>60); Estimated Creatinine Clearance 22.16 ml/min; Globulin 4.7 g/dL (2.2-4.2); Glucose 183 mg/dL (74-106); Potassium 4.3 mmol/L (3.5-5.1); Protein, Total 8.1 g/dL (6.4-8.2); Sodium Level 137 mmol/L (136-145)
[2020-10-23 17:46] VITALS: BP 131/78; PULSE 77; RESP 21; O2SAT 99
[2020-10-23 17:48] LABS: Bacteria 0 SEEN /hpf (None Seen); Mucous, Urine 0 SEEN /hpf (<or=2+); Red Blood Cells-Urine 0 SEEN /hpf (0-5)
[2020-10-23 17:58] LABS: Color, Urine Yellow (Yellow); Urine Clarity Sl Cldy (Clear)
[2020-10-23 17:59] LABS: Glucose, Dipstick 100 mg/dl (Normal); Ketone-Dipstick Negative (Negative); Leukocyte Esterase-Dipstick 100 /ul (Negative); Nitrite-Dipstick Negative (Negative); Occult Blood-Urine Negative /ul (Negative); Protein-Dipstick Negative (Negative); Specific Gravity, Urine 1.015 (1.002-1.030); Urine Bilirubin Dipstick Negative (Negative); Urine Urobilinogen Normal (Normal)
[2020-10-23 18:00] LABS: Squamous Epithelial Cells - UA 0-5 SEEN /hpf (5-10); White Blood Cells 5-10 SEEN /hpf (0-5)
[2020-10-23 18:13] VITALS: BP 180/88; PULSE 98; RESP 17
[2020-10-23] MEDS: Acetaminophen 500 MG Tablet 1000 MG PO (18:14)
[2020-10-23] MEDS: Ondansetron 4 MG/2 ML Vial IV (18:14)
== END 2020-10-23 18:28 | disposition home or self-care (01) ==
PROVIDERS: Emergency Provider Emergency Medicine; PCP Internal Medicine
DX: N39.0 Urinary tract infection, site not specified (principal); I10 Essential (primary) hypertension; Z94.4 Liver transplant status; Z79.82 Long term (current) use of aspirin
CPT/HCPCS: 71045; 80053; 81001; 84484; 85025; 87426; 93005; 96374; 99285; A4216; J2405

== ENCOUNTER → 2021-02-07 06:25 | Outpatient (CLI) | payer MEDICARE, MEDICAID, SELFPAY ==
--- NOTE | 2021-02-07 09:10 | STRESSREP_ITS ---
Stress Test Report Date: 02-07-2021 Procedure: Pharmacologic stress nuclear imaging study Indications: Chest pain Consent: Per the patient Procedure: The patient underwent pharmacologic (Regadenoson 0.4mg ) evaluation with a peak heart rate of 114 beats per minute (82%predicted maximal heart rate) and a peak blood pressure of 152/78 mmHg. The baseline ECG demonstrated sinus rhythm; right bundle branch block pattern. The peak pharmacologic ECG demonstrated no obvious ECG changes. There were no cardiac dysrhythmias pretest, during pharmacologic infusion, or recovery. There was no complaint of chest discomfort during pharmacologic infusion or recovery. The examination was discontinued secondary to completion of protocol. Impression: 1. Pharmacologic (Regadenoson) evaluation 2. Peak pharmacologic ECG with continued sinus rhythm with right bundle branch block pattern with no obvious ECG changes. 3. There were no cardiac dysrhythmias pretest, during pharmacologic infusion, or recovery. 4. Nuclear images pending Myocardial perfusion imaging study: Technique: The patient was injected with 11.1 millicuries of technetium 99m Cardiolite and subsequently rest SPECT Cardiolite nuclear imaging was obtained in the horizontal long, vertical long, and short axis views. The patient underwent pharmacologic (Regadenoson) evaluation with a peak heart rate of 114 beats per minute (82% percent predicted maximal heart rate) and a peak blood pressure of 142/78 mmHg. The patient was injected with 33.2 millicuries of technetium 99m Cardiolite and subsequently stress SPECT Cardiolite nuclear imaging was obtained in the horizontal long, vertical long, and short axis views. A gated Cardiolite study at peak stress was obtained. Interpretation: Rest and stress SPECT Cardiolite nuclear imaging status post realignment, normalization, and attenuation correction demonstrate relative uniform tracer uptake and myocardial perfusion appearing within normal limits. There is end systolic thickening and brightening. The gated Cardiolite study demonstrates myocardial thickening and inward wall motion. The reported LVEF is 78%. Impression: 1. Rest and stress SPECT Cardiolite nuclear imaging demonstrate relative uniform tracer uptake and myocardial perfusion appearing within normal limits. 2. The gated Cardiolite study reports an LVEF of 78%. This note was generated with [employer] software. It may contain incorrect words, spelling, and punctuation that were not noted in checking the note before signing.
== END ==
PROVIDERS: PCP Internal Medicine; Referring Provider Internal Medicine Interventional Cardiology; Visit Provider Internal Medicine Interventional Cardiology
DX: I08.0 Rheumatic disorders of both mitral and aortic valves (principal); R94.31 Abnormal electrocardiogram [ECG] [EKG]
CPT/HCPCS: 78452; 93017; A9500; A4216; J2785

== ENCOUNTER → 2021-03-22 09:50 | Outpatient (CLI) | payer MEDICARE, MEDICAID, SELFPAY ==
[2021-03-22 13:04] LABS: Vitamin D,25 Hydroxy 27.6 ng/mL
[2021-03-22 13:18] LABS: Albumin, Serum 3.6 g/dL (3.2-5.0); BUN 19 mg/dL (7-18); BUN/Creat Ratio 14.4 RATIO (10-20); Calcium,Total 9.3 mg/dL (8.5-10.1); Chloride 105 mmol/L (98-107); Creatinine, Serum 1.32 mg/dL (0.55-1.02); EST Glomerular Filtration Rate 41 mL/min (>60); Est Glom Filt Rate - Afr Amer 50 mL/min (>60); Glucose 136 mg/dL (74-106); Phosphorus 2.5 mg/dL (2.5-4.9); Potassium 3.8 mmol/L (3.5-5.1); Sodium Level 137 mmol/L (136-145)
[2021-03-22 13:22] LABS: PTHIN 139.7 pg/mL (18.4-80.1)
== END ==
PROVIDERS: PCP Internal Medicine; Visit Provider Internal Medicine Nephrology
DX: N18.32 Chronic kidney disease, stage 3b (principal); E55.9 Vitamin D deficiency, unspecified; E21.1 Secondary hyperparathyroidism, not elsewhere classified
CPT/HCPCS: 36415; 80069; 82306; 83970

== ENCOUNTER → 2021-03-24 12:50 | Outpatient (CLI) | payer MEDICARE, MEDICAID, SELFPAY ==
--- NOTE | 2021-03-24 12:55 | US_ITS ---
STUDY: RENAL ULTRASOUND - COMPLETE REASON FOR EXAM: Female, 80 years old. Elevated BUN/creatinine TECHNIQUE: Ultrasound evaluation of the kidneys was performed with real-time and static ramos-scale imaging. COMPARISON: None. FINDINGS: RIGHT KIDNEY: Normal location of the right kidney, which is normal in size. The right kidney measures 8.7 x 4.9 x 3.6 cm. There is a normal cortex of the right kidney. The renal cortex measures 1.1 cm. There is no right renal mass or cyst. There are no right renal calculi. There is no right hydronephrosis. DISTAL RIGHT URETER: There is non-visualization of the distal right ureter. There is no demonstrated right ureterovesical junction calculus. There is a visualized right ureteral jet. LEFT KIDNEY: Normal location of the left kidney, which is normal in size. The left kidney measures 8.6 x 4.6 x 3.9 cm. There is a normal cortex of the left kidney. The renal cortex measures 1.2 cm. There is no left renal mass or cyst. There are no left renal calculi. There is no left hydronephrosis. DISTAL LEFT URETER: There is non-visualization of the distal left ureter. There is no demonstrated left ureterovesical junction calculus. There is a visualized left ureteral jet. AORTA: There is no elongation or tortuosity of the abdominal aorta. I.V.C.: The IVC is patent. BLADDER: The bladder is incompletely distended US/Kidney and Bladder IMPRESSION: No suspicious sonographic findings Electronically Signed: James Smith MD at 13:53 EDT , Service support ,
== END ==
PROVIDERS: PCP Internal Medicine; Referring Provider Internal Medicine Nephrology; Visit Provider Internal Medicine Nephrology
DX: N18.32 Chronic kidney disease, stage 3b (principal)
CPT/HCPCS: 76770

== ENCOUNTER → 2021-05-04 08:57 | Outpatient (CLI) | payer MEDICARE, MEDICAID, SELFPAY ==
[2021-05-04 10:08] LABS: Albumin, Serum 3.6 g/dL (3.2-5.0); BUN 22 mg/dL (7-18); BUN/Creat Ratio 17.7 RATIO (10-20); Calcium,Total 9.1 mg/dL (8.5-10.1); Chloride 110 mmol/L (98-107); Creatinine, Serum 1.24 mg/dL (0.55-1.02); EST Glomerular Filtration Rate 44 mL/min (>60); Est Glom Filt Rate - Afr Amer 53 mL/min (>60); Glucose 109 mg/dL (74-106); Phosphorus 3.1 mg/dL (2.5-4.9); Sodium Level 141 mmol/L (136-145)
== END ==
PROVIDERS: PCP Internal Medicine; Referring Provider Internal Medicine Nephrology; Visit Provider Internal Medicine Nephrology
DX: N18.32 Chronic kidney disease, stage 3b (principal)
CPT/HCPCS: 36415; 80069

== ENCOUNTER → 2021-05-12 16:00 | Outpatient (CLI) | payer MEDICARE, MEDICAID, SELFPAY ==
[2021-05-12 17:35] LABS: Absolute Neutrophil Count 2.5 X10^3/uL (2.0-7.7); Basophil# 0.05 X10^3/uL; Eosinophil# 0.16 X10^3/uL; Eosinophils% 3.2 % (0-5); Hematocrit 40.6 % (37-47); Hemoglobin 13.4 g/dL (12.0-15.0); Lymphocyte % 32.3 % (19-41); Mean Corpuscular Hgb 30.7 pg (27.0-32.0); Mean Corpuscular Volume 93.1 fL (81-99); Mean Platelet Vol. 10.4 fl (6.2-12.0); Monocyte# 0.63 X10^3/uL; Monocyte% 12.7 % (0-10); NRBC Flagged by Analyzer 0 % (0-5); Neutrophil # 2.51 X10^3/uL (2.7-7.7); Neutrophil % 50.6 % (47-70); Platelet Count 223 K/mm3 (150-450); RBC Distribution Width SD 51.9 fl (35.1-43.9); Red Blood Count 4.36 M/mm3 (4.2-5.4)
[2021-05-12 17:57] LABS: ALB/GLOB Ratio 0.8 RATIO (0.9-2.4); AST(SGOT) 36 U/L (15-37); Alanine Aminotransfer ALT/SGPT 26 U/L (13-56); Albumin, Serum 3.5 g/dL (3.2-5.0); Alkaline Phosphatase 81 U/L (45-117); Anion Gap 6 (5-15); BUN 22 mg/dL (7-18); BUN/Creat Ratio 17.1 RATIO (10-20); Calcium,Total 9.4 mg/dL (8.5-10.1); Chloride 105 mmol/L (98-107); Creatinine, Serum 1.29 mg/dL (0.55-1.02); EST Glomerular Filtration Rate 42 mL/min (>60); Est Glom Filt Rate - Afr Amer 51 mL/min (>60); Globulin 4.3 g/dL (2.2-4.2); Glucose 88 mg/dL (74-106); Protein, Total 7.8 g/dL (6.4-8.2); Sodium Level 140 mmol/L (136-145)
[2021-05-12 20:12] LABS: M R Staph aureus DNA By PCR Negative (Negative); Probe Check PASS; Staph aureus DNA By PCR POSITIVE (Negative)
== END ==
PROVIDERS: PCP Internal Medicine; Referring Provider Podiatrist; Visit Provider Podiatrist
DX: L03.031 Cellulitis of right toe (principal)
CPT/HCPCS: 36415; 80053; 85025; 87070; 87075; 87205; 87640

== ENCOUNTER 2021-11-04 12:55 | Emergency (ER) | payer MEDICARE, MEDICAID, SELFPAY ==
[2021-11-04 12:56] VITALS: BP 135/58; PULSE 104; RESP 16; TEMP 37.1; O2SAT 95; BMI 19.7
[2021-11-04 13:08] VITALS: O2SAT 95
[2021-11-04 13:14] VITALS: BP 149/74; PULSE 99; RESP 18; O2SAT 95
--- NOTE | 2021-11-04 13:16 | EKG12_ITS ---
Test Reason : COUGH Blood Pressure : / mmHG Vent. Rate : 091 BPM Atrial Rate : 084 BPM P-R Int : 186 ms QRS Dur : 112 ms QT Int : 380 ms P-R-T Axes : 078 001 046 degrees QTc Int : 467 ms Sinus rhythm with Premature supraventricular complexes INCOMPLETE RIGHT BUNDLE BRANCH BLOCK Confirmed by CHANDANA LICONA, JOSE GUADALUPE ([id number]), editor book VANNA LEUNG ([id number]) on 11/08/2021 10:02:55 AM Referred By: VANI Confirmed By:JOSE GUADALUPE ELLINGTON MD
--- NOTE | 2021-11-04 13:16 | RAD_ITS ---
STUDY: X-RAY CHEST REASON FOR EXAM: Female, 81 years old. Dyspnea. TECHNIQUE: Single AP portable view of the chest. COMPARISON: 10/23/2020. FINDINGS: There is hyperinflation of the lungs consistent with chronic obstructive lung disease (COPD). Mild stranding/scarring in the right lung base. No focal infiltrate is seen. No evidence of pleural effusions. Sternal cerclage wires are present from a prior sternotomy. Borderline cardiac silhouette. Normal mediastinum and tono. Normal visualized pulmonary arteries. There is atherosclerotic calcification of the aortic arch with tortuosity. Stable osseous structures. There is no demonstrated abnormality of the visualized soft tissue structures of the upper abdomen. RAD/Chest 1 View (Portable) IMPRESSION: No active pulmonary disease. Electronically Signed: Shay Reeves, at 14:41 EST Tel , Service support ,
--- NOTE | 2021-11-04 13:17 | EDS_ITS ---
HPI HPI - URI History of Present Illness Chief Complaint: Cough Detail of Chief Complaint: Cough x2 days Informant: patient Narrative Narrative: Patient presents to the emergency department from home with complaint of a cough that started 2 days ago. Patient had a low-grade fever. She complains of some generalized weakness. Her cough is productive at times of some yellow sputum. She denies sick contacts. She has not had her Covid vaccine. She has history of hypertension. Patient denies any chest pain. Prior similar symptoms: No ROS ROS ED Constitutional Constitutional ED: Reports systems reviewed and no addt'l complaints, except as documented and fever(s); Denies body ache(s), change in weight or chills Eyes Eyes: Denies acute decrease in peripheral vision, change in vision, double vision or loss of vision ENT ENT ED: Reports none; Denies ear pain, lip swelling, loss taste/smell, neck pain, otalgia or sore throat Cardiovascular Cardiovascular: Reports none; Denies abdominal pain, chest pain with activity, leg edema, lightheadedness, palpitations, rapid heart rate or syncope Respiratory/Chest Respiratory/Chest: Reports none and cough; Denies change in mental status, dry cough, dyspnea, hemoptysis, shortness of breath at rest or shortness of breath with exertion Gastrointestinal Gastrointestinal: Reports none; Denies abdominal pain, change in stool character, diarrhea, hematemesis, hematochezia, melena, rectal bleeding or vomiting Genitourinary Genitourinary ED: Reports none; Denies abdominal discomfort, anuria, dysuria, genital pain or polyuria Musculoskeletal Musculoskeletal: Reports none; Denies arthralgias, back pain, difficulty walking, extremity pain, muscle weakness or myalgias Integumentary Reports none; Denies abscess or rash Neurologic Neurologic: Reports none and weakness; Denies abnormal gait, confusion, focal weakness, frequent falls, headache(s), loss of vision, numbness, paresthesias, radicular pain or vertigo Psychiatric Psychiatric: Reports systems reviewed and no addt'l complaints, except as documented and none; Denies behavioral changes, confusion, difficulty concentrating, hallucinations, suicidal ideation, tactile hallucinations or visual hallucinations Endocrine Endocrinology: Denies none, cold intolerance, excessive sweating, fatigue or heat intolerance Hematologic/Lymphatic Hematologic/Lymphatic: Reports none; Denies anemia, easy bleeding or easy bruising Allergic/Immunologic Allergic/Immunologic ED: Denies as per HPI, none, lip swelling, mouth swelling, throat swelling, tongue swelling or hives PFSH PFS Medical History (Updated 11/04/21 @ 15:[address] Gloria Davis DO) HTN (hypertension) Home Medications tacrolimus 1 mg PO BID 09/09/13 [History Last Taken 06/06/20] aspirin 1 tab PO DAILY 06/07/20 [History Last Taken 06/06/20] metoprolol succinate 50 mg PO DAILY 06/07/20 [History Last Taken 06/06/20] cephalexin 500 mg PO Q12 #14 cap 10/23/20 [Rx Last Taken Unknown] Allergy/AdvReac Type Severity Reaction Status Date / Time No Known Allergies Allergy Verified 11/04/21 12:59 Surgical History (Updated 11/04/21 @ 13:09 by Shamir Mark) Liver transplant recipient Social History Smoking Status: Never smoker EXAM Physical Exam Const Vital Signs: 11/04/21 12:56 11/04/21 13:08 11/04/21 13:14 Temperature 98.8 F Temperature Source Temporal Pulse Rate 104 H 99 Respiratory Rate 16 18 Respiratory Effort Normal Short of Breath Respiratory Depth Normal Respiratory Pattern Normal Blood Pressure 135/58 H 149/74 H Blood Pressure Mean 83 99 Pulse Ox 95 95 Oxygen Delivery Method Room Air Room Air Room Air Positive well nourished and well developed General Appearance ED: well developed and NAD HEENT Reports TM's clear and moist mucous membranes normocephalic and atraumatic; Negative for trauma or tenderness Tympanic Membrane ED: Yes TM's clear Eyes PERRL and EOMs intact bilaterally General Eye ED: Negative for pale conjunctiva or scleral icterus Neck no lymphadenopathy, supple and no JVD General: Negative for tenderness Chest Wall inspection of chest normal and palpation of chest normal Chest: Negative for tenderness Resp normal respiratory effort and clear to auscultation bilaterally Effort and Inspection: Negative for respiratory distress or pain with movement Auscultation: Negative for rhonchi, wheezes or diminished lung sounds Cardio regular rate, regular rhythm, S1 normal heart sound, S2 normal heart sound and no murmurs Peripheral Pulses: pulses 2+ throughout GI normal to inspection, nondistended, normoactive bowel sounds, soft to palpation, non-tender, non-distended and no masses Back/Spine no CVA tenderness and no thoracic nor lumbar tenderness Extremity normal to inspection General Extremety ED: Negative for edema General Extremity: Negative for edema Neuro oriented x3, CN's II-XII intact bilaterally, no sensory deficits noted and gait normal Sensorium / Orientation: awake, alert, oriented to person, oriented to place and oriented to time Motor Exam: strength 5/5 throughout and strength abnormal Psych mental status grossly normal Skin no rashes or lesions noted and no wounds MDM MDM MDM Narrative Medical decision making narrative: IV line established on arrival. Blood cultures ordered. COVID-19 testing rapid was undertaken and was positive. Influenza screen was negative. Chest x-ray was unremarkable. Patient is not hypoxic and in no respiratory distress. I will refer her for monoclonal antibody infusion. Patient advised to return if increasing shortness of breath or conditions worsen anyway. Lab Data Attestation: I reviewed the patient's lab results. Labs: Laboratory Results - last 24 hr 11/04/21 11/04/21 11/04/21 13:20 13:20 13:46 WBC 2.8 L RBC 4.33 Hgb 13.1 Hct 39.5 MCV 91.2 MCH 30.3 MCHC 33.2 RDW Std Deviation 47.4 H RDW Coeff of Noe 14.0 Plt Count 158 MPV 10.8 Immature Gran % (Auto) 0.400 Neut % (Auto) 64.8 Lymph % (Auto) 22.1 Prentiss % (Auto) 12.3 H Eos % (Auto) 0.0 Baso % (Auto) 0.4 Absolute Neuts (auto) 1.8 L Absolute Lymphs (auto) 0.61 L Nucleated RBC % 0 Sodium 135 L Potassium 4.1 Chloride 101 Carbon Dioxide 26.0 Anion Gap 8 BUN 22 H Creatinine 1.32 H Estim Creat Clear Calc 23.20 Est GFR (MDRD) Af Amer 49 L Est GFR (MDRD) Non-Af 41 L BUN/Creatinine Ratio 16.7 Glucose 99 Lactic Acid 1.0 Calcium 9.0 Radiography Diagnostic Testing: Clinical Impression(s) from Imaging Studies Chest X-Ray 11/04/21 13:16 IMPRESSION: No active pulmonary disease. Electronically Signed: Shay Reeves, at 14:41 EST Tel , Service support , 1 view chest x-ray obtained interpreted by myself as no acute disease process. Radiology in agreement. EKG Initial EKG: Attestation: I personally reviewed and interpreted this EKG as follows: Comments: Sinus rhythm with a ventricular rate of 91 bpm with PACs and right bundle branch block morphology Discharge Plan Triage Chief Complaint: Cough ED Provider: Gloria Davis Dx/Rx/DC Orders Clinical Impression: COVID-19 Instructions: ED - COVID Monoclonal AB Infusion ..., Caring for Someone Who Has COVID-19 Prescriptions: No Action tacrolimus 1 MG capsule 1 mg PO BID RF: 0 metoprolol succinate 50 MG tablet extended release 24 hr 50 mg PO DAILY RF: 0 aspirin 81 MG tablet,chewable 1 tab PO DAILY RF: 0 cephalexin 500 MG capsule 500 mg PO Q12 Qty: 14 RF: 0 Primary Care Provider: Shaq Williamson Referrals: Shaq Williamson MD [Primary Care Provider] - 5-7 Days Disposition Disposition: Home, Self Care
[2021-11-04 13:35] LABS: Absolute Lymphocyte Count 0.61 X10^3/uL (0.83-4.51); Absolute Neutrophil Count 1.8 X10^3/uL (2.0-7.7); Basophil# 0.01 X10^3/uL; Basophil% 0.4 % (0-1); Hematocrit 39.5 % (37-47); Hemoglobin 13.1 g/dL (12.0-15.0); Lymphocyte # 0.61 X10^3/ul (0.83-4.51); Lymphocyte % 22.1 % (19-41); Mean Corp Hgb Conc 33.2 g/dL (32-36); Mean Corpuscular Hgb 30.3 pg (27.0-32.0); Mean Corpuscular Volume 91.2 fL (81-99); Mean Platelet Vol. 10.8 fl (6.2-12.0); Monocyte# 0.34 X10^3/uL; Monocyte% 12.3 % (0-10); NRBC Flagged by Analyzer 0 % (0-5); Neutrophil # 1.79 X10^3/uL (2.7-7.7); Neutrophil % 64.8 % (47-70); Platelet Count 158 K/mm3 (150-450); RBC Distribution Width SD 47.4 fl (35.1-43.9); Red Blood Count 4.33 M/mm3 (4.2-5.4); White Blood Count 2.8 K/mm3 (4.4-11.0)
[2021-11-04] MEDS: 0.9% Normal Saline 1,000 ML 150 ML IV (13:48)
[2021-11-04 13:51] LABS: Anion Gap 8 (5-15); BUN 22 mg/dL (7-18); BUN/Creat Ratio 16.7 RATIO (10-20); Chloride 101 mmol/L (98-107); Creatinine, Serum 1.32 mg/dL (0.55-1.02); EST Glomerular Filtration Rate 41 mL/min (>60); Est Glom Filt Rate - Afr Amer 49 mL/min (>60); Glucose 99 mg/dL (74-106); Potassium 4.1 mmol/L (3.5-5.1); Sodium Level 135 mmol/L (136-145)
[2021-11-04 15:07] VITALS: BP 141/50; BP 141/80; PULSE 78; RESP 16; RESP 18; TEMP 37.2; O2SAT 96
== END 2021-11-04 15:26 | disposition home or self-care (01) ==
PROVIDERS: Emergency Provider Emergency Medicine; PCP Internal Medicine
DX: U07.1 COVID-19 (principal); R05.9 Cough, unspecified; R50.9 Fever, unspecified; R53.1 Weakness
CPT/HCPCS: 71045; 80048; 83605; 85025; 87040; 87426; 87804; 93005; 99284; J7030

== ENCOUNTER 2021-11-07 17:32 | Inpatient (IN) | payer MEDICARE, MEDICAID, SELFPAY ==
[2021-11-07] VITALS (8 sets, daily range): BP systolic 91–128; BP diastolic 51–70; PULSE 61–86; RESP 15–30; TEMP 36.4–36.7; O2SAT 94–98; BMI 22.4
--- NOTE | 2021-11-07 18:56 | RAD_ITS ---
STUDY: X-RAY CHEST REASON FOR EXAM: Female, 81 years old. PT IS COVID POSITIVE AND FEELS WEAK. WAS TOLD BY [facility] COORDINATER TO GO TO ER covid 19 TECHNIQUE: XR Chest 1 View COMPARISON: 11.04.21 FINDINGS: There is no demonstrated pleural abnormality. There are multiple median sternotomy wires. There is bilateral infiltrate / atelectasis. Normal size heart. Normal mediastinum and tono. Normal visualized pulmonary arteries. There is atherosclerotic calcification of the aortic arch with tortuosity. There are diffuse degenerative changes of the visualized thoracic spine. There is degenerative osteoarthritis of the bilateral shoulders. There is no demonstrated abnormality of the visualized soft tissue structures of the upper abdomen. RAD/Chest 1 View (Portable) IMPRESSION: Bilateral pneumonia. Electronically Signed: Calvin Aguiar MD at 19:23 EST , Service support ,
--- NOTE | 2021-11-07 18:58 | EDS_ITS ---
HPI History of Present Illness Chief Complaint: Weakness Informant: patient and other Narrative Narrative: 81-year-old female states that she does not feel well. Other than that she can only tell me that her stomach hurts her. When I asked her why she cannot tell me. Nurses tell me that she was in the emergency room 3 days ago and tested positive for COVID-19. She cannot tell me if that is true or not. She cannot tell me if she was vaccinated or not. She cannot tell me really anything about her past other than her stomach hurts her at this moment. She states she is not vomiting is not having diarrhea her stomach just hurts. Her ex- is also here being seen for COVID-19. He remains in a good relationship with her and states that he is concerned she may be developing dementia. She currently lives alone. He notes that she has not ate for 3 days stating that nothing sounds good. [facility] Medical History HTN (hypertension) Home Medications tacrolimus 1 mg PO BID 09/09/13 [History Last Taken 06/06/20] aspirin 1 tab PO DAILY 06/07/20 [History Last Taken 06/06/20] metoprolol succinate 50 mg PO DAILY 06/07/20 [History Last Taken 06/06/20] cephalexin 500 mg PO Q12 #14 cap 10/23/20 [Rx Last Taken Unknown] Allergy/AdvReac Type Severity Reaction Status Date / Time No Known Allergies Allergy Verified 11/07/21 17:36 Surgical History Liver transplant recipient Social History Smoking Status: Never smoker ROS ROS ED Constitutional Constitutional ED: Denies chills, fever(s) or weight loss Eyes Eyes: Denies change in vision or diplopia ENT ENT ED: Denies ear pain, rhinorrhea or sore throat Cardiovascular Cardiovascular: Denies chest pain, orthopnea, palpitations or racing heartbeat Respiratory/Chest Respiratory/Chest: Denies cough, dyspnea or orthopnea Gastrointestinal Gastrointestinal: Denies abdominal pain, diarrhea, nausea or vomiting Genitourinary Genitourinary ED: Denies dysuria, hematuria or urinary frequency Musculoskeletal Musculoskeletal: Denies arthralgias or myalgias Integumentary Denies abscess or rash Neurologic Neurologic: Denies headache(s) or weakness Psychiatric Psychiatric: Denies anxiety, depression, suicidal ideation or suicidal thoughts Endocrine Endocrinology: Denies polydipsia, polyphagia or polyuria Allergic/Immunologic Allergic/Immunologic ED: Denies mouth swelling, tongue swelling or urticaria EXAM Physical Exam Const Vital Signs: 11/07/21 17:34 11/07/21 17:36 11/07/21 18:36 Temperature 97.6 F L 97.6 F L 97.6 F L Temperature Source Temporal Temporal Temporal Pulse Rate 80 80 71 Respiratory Rate 15 15 28 H Respiratory Effort Respiratory Pattern Blood Pressure 91/60 91/60 112/62 Blood Pressure Mean 70 70 78 Pulse Ox 96 96 96 Oxygen Delivery Method Room Air Room Air Room Air 11/07/21 18:45 11/07/21 19:07 11/07/21 19:39 Temperature 97.6 F L Temperature Source Temporal Pulse Rate 61 72 Respiratory Rate 30 H 17 Respiratory Effort Normal Non-Labored Respiratory Pattern Normal Blood Pressure 106/55 L 123/60 H Blood Pressure Mean 72 81 Pulse Ox 98 95 Oxygen Delivery Method Room Air 11/07/21 22:26 11/07/21 22:55 Temperature 97.5 F L 98.0 F Temperature Source Temporal Temporal Pulse Rate 64 64 Respiratory Rate 16 20 H Respiratory Effort Respiratory Pattern Blood Pressure 106/65 122/51 H Blood Pressure Mean 78 74 Pulse Ox 96 94 Oxygen Delivery Method Room Air Room Air Positive well nourished and well developed General Appearance ED: well developed HEENT Reports normocephalic, head/scalp atraumatic, TM's clear and moist mucous membranes Negative for trauma Tympanic Membrane ED: Yes TM's clear Eyes PERRL and EOMs intact bilaterally Neck no lymphadenopathy, supple and no JVD Resp normal respiratory effort and clear to auscultation bilaterally Cardio regular rate, regular rhythm and no murmurs GI GI Narrative: Diffusely mild tenderness to palpation. Soft abdomen. Auscultation: normoactive bowel sounds Palpation: soft; Negative for guarding or rebound tenderness present Back/Spine no CVA tenderness and normal ROM Extremity normal to inspection General Extremety ED: Negative for edema General Extremity: Negative for edema Neuro CN's II-XII intact bilaterally Sensorium / Orientation: alert Motor Exam: strength 5/5 throughout Psych mental status grossly normal Mood & Affect: Negative for depressed or tearful Skin no rashes or lesions noted and no wounds MDM MDM MDM Narrative Medical decision making narrative: Patient's labs show leukopenia and a slight thrombocytopenia. BUN 39 with creatinine 1.48. Urinalysis negative. My interpretation of the chest x-ray is bilateral infiltrates consistent with COVID-19. CT the brain negative. CT of the chest does not demonstrate any pulmonary embolism. Patient received some Toradol for pain and a 500 cc fluid bolus. She lives alone and appears encephalopathic. Her ex- who helps care for her at times agrees that she does not seem to be acting her normal self. Lab Data Attestation: I reviewed the patient's lab results. Labs: Laboratory Results - last 24 hr 11/07/21 11/07/21 11/07/21 18:43 18:43 21:20 WBC 2.9 L RBC 4.59 Hgb 13.6 Hct 41.7 MCV 90.8 MCH 29.6 MCHC 32.6 RDW Std Deviation 47.7 H RDW Coeff of Noe 14.2 Plt Count 143 L MPV 11.4 Immature Gran % (Auto) 1.000 H Neut % (Auto) 64.4 Lymph % (Auto) 23.9 Cottle % (Auto) 10.4 H Eos % (Auto) 0.0 Baso % (Auto) 0.3 Absolute Neuts (auto) 1.9 L Absolute Lymphs (auto) 0.69 L Nucleated RBC % 0 Differential Comment SCANNED Sodium 141 Potassium 4.1 Chloride 105 Carbon Dioxide 26.0 Anion Gap 10 BUN 39 H Creatinine 1.48 H Estim Creat Clear Calc 20.69 Est GFR (MDRD) Af Amer 43 L Est GFR (MDRD) Non-Af 36 L BUN/Creatinine Ratio 26.4 H Glucose 103 Calcium 9.1 Total Bilirubin 0.40 AST 64 H ALT 28 Alkaline Phosphatase 45 Total Protein 7.0 Albumin 2.7 L Globulin 4.3 H Albumin/Globulin Ratio 0.6 L Lipase 225 Urine Color Yellow Urine Clarity Clear Urine pH 5.0 Ur Specific [place] 1.025 Urine Protein 100 H Urine Glucose (UA) Normal Urine Ketones 5 H Urine Occult Blood Negative Urine Nitrite Negative Urine Bilirubin Negative Urine Urobilinogen Normal Ur Leukocyte Esterase 25 H Urine RBC 0 SEEN Urine WBC 0 SEEN Ur Squamous Epith Cells 0 SEEN Urine Bacteria RARE Urine Mucus 0 SEEN Radiography Diagnostic Testing: Clinical Impression(s) from Imaging Studies Chest X-Ray 11/07/21 18:56 IMPRESSION: Bilateral pneumonia. Electronically Signed: Calvin Aguiar MD at 19:23 EST , Service support , Brain CT 11/07/21 20:30 IMPRESSION: No acute intracranial pathology. Chronic small vessel ischemic changes. Electronically Signed: Naveen iMller DO at 21:50 EST Tel , Service support , Chest CTA 11/07/21 20:31 IMPRESSION: 1. No demonstrated pulmonary embolism or arterial dissection. 2. There is bilateral pneumonia. Electronically Signed: Calvin Aguiar MD at 21:46 EST , Service support , Discharge Plan Dx/Rx/DC Orders Clinical Impression: COVID-19, Acute encephalopathy, Pneumonia due to COVID-19 virus, Acute dehydration Disposition Disposition: Acute Care [facility]
[2021-11-07] MEDS: Ketorolac 15 MG/ML Vial IV (19:02)
[2021-11-07 19:15] LABS: Absolute Lymphocyte Count 0.69 X10^3/uL (0.83-4.51); Absolute Neutrophil Count 1.9 X10^3/uL (2.0-7.7); Basophil# 0.01 X10^3/uL; Basophil% 0.3 % (0-1); Hematocrit 41.7 % (37-47); Hemoglobin 13.6 g/dL (12.0-15.0); Lymphocyte # 0.69 X10^3/ul (0.83-4.51); Lymphocyte % 23.9 % (19-41); Mean Corp Hgb Conc 32.6 g/dL (32-36); Mean Corpuscular Hgb 29.6 pg (27.0-32.0); Mean Corpuscular Volume 90.8 fL (81-99); Mean Platelet Vol. 11.4 fl (6.2-12.0); Monocyte% 10.4 % (0-10); NRBC Flagged by Analyzer 0 % (0-5); Neutrophil # 1.86 X10^3/uL (2.7-7.7); Neutrophil % 64.4 % (47-70); POSITIVE MORPHOLOGY YES; Platelet Count 143 K/mm3 (150-450); RBC Distribution Width CV 14.2 % (11.6-14.6); RBC Distribution Width SD 47.7 fl (35.1-43.9); Red Blood Count 4.59 M/mm3 (4.2-5.4); White Blood Count 2.9 K/mm3 (4.4-11.0)
[2021-11-07 19:28] LABS: ALB/GLOB Ratio 0.6 RATIO (0.9-2.4); AST(SGOT) 64 U/L (15-37); Alanine Aminotransfer ALT/SGPT 28 U/L (13-56); Albumin, Serum 2.7 g/dL (3.2-5.0); Alkaline Phosphatase 45 U/L (45-117); Anion Gap 10 (5-15); BUN 39 mg/dL (7-18); BUN/Creat Ratio 26.4 RATIO (10-20); Calcium,Total 9.1 mg/dL (8.5-10.1); Chloride 105 mmol/L (98-107); Creatinine, Serum 1.48 mg/dL (0.55-1.02); EST Glomerular Filtration Rate 36 mL/min (>60); Est Glom Filt Rate - Afr Amer 43 mL/min (>60); Estimated Creatinine Clearance 20.69 ml/min; Globulin 4.3 g/dL (2.2-4.2); Glucose 103 mg/dL (74-106); Lipase 225 U/L (73-393); Potassium 4.1 mmol/L (3.5-5.1); Sodium Level 141 mmol/L (136-145)
[2021-11-07 20:15] LABS: Differential Indicated SCAN CRITERIA MET
[2021-11-07 20:18] LABS: Differential Comment SCANNED
--- NOTE | 2021-11-07 20:30 | CT_ITS ---
INDICATION: confusion EXAMINATION: CT BRAIN - CT Head or Brain W/O Contrast Injection TECHNIQUE: Multiple axial images were obtained of the head without intravenous contrast. A radiation dose optimization technique was used for this scan. IV Contrast dosage and agent: None. COMPARISON: 06/07/2020 CT brain FINDINGS: BRAIN PARENCHYMA: No intra- or extra-axial hemorrhage. No intracranial mass or mass effect. Luque/white matter differentiation is maintained and there is no blurring of the basal ganglia. There is no hyperdense vessel. Mild decreased periventricular white matter density most likely represents chronic small vessel ischemic changes. Posterior fossa structures are unremarkable. CSF SPACES: Appropriate for age. No hydrocephalus. Basal cisterns are patent. CALVARIUM, SKULL BASE, PARANASAL SINUSES AND MASTOID AIR CELLS: Clear. No discrete lytic or blastic abnormalities. Moderate degenerative changes of the atlantoaxial articulation. ORBITS: Both globes, extraocular muscles, optic nerves and retrobulbar fat appear unremarkable. ASPECTS Score for Acute Strokes: 10 CT/Brain/Head without Contrast IMPRESSION: No acute intracranial pathology. Chronic small vessel ischemic changes. Electronically Signed: Naveen Miller DO at 21:50 EST Tel , Service support ,
--- NOTE | 2021-11-07 20:31 | CT_ITS ---
EXAM: CT ANGIOGRAPHY CHEST WITHOUT AND WITH INTRAVENOUS CONTRAST CLINICAL INDICATION: pulmonary embolism TECHNIQUE: Helically acquired angiography images were obtained of the chest without and with intravenous contrast. This CT exam was performed using one or more of the following dose reduction techniques: automated exposure control, adjustment of the mA and/or kV according to patient size, and/or use of iterative reconstruction technique. This report was created using [employer] report generation technology. MIP reconstructed images were created and reviewed. CONTRAST: IV 75mL [id number] COMPARISON: None. FINDINGS: PULMONARY ARTERIES: No demonstrated pulmonary embolism or arterial dissection. AORTA: There is atherosclerotic calcification of the aortic arch with tortuosity and elongation of the aortic arch and descending thoracic aorta. Normal in caliber. No evidence of dissection. GREAT VESSELS OF AORTIC ARCH: Unremarkable. Normal in caliber. No evidence of dissection. LUNGS AND PLEURAL SPACES: There is bilateral pneumonia. No mass. No pleural effusion or thickening. HEART: There are calcifications of the coronary arteries. MEDIASTINUM: Unremarkable. No mediastinal or hilar adenopathy. Esophagus is unremarkable. No hiatal hernia. THYROID: Unremarkable. No thyroid lesions. BONES/JOINTS: There are degenerative findings of the thoracic spine. Multilevel age indeterminate compression deformities. Multiple median sternotomy wires are noted consistent for cardiac surgery. No suspicious lytic or blastic abnormality. CT/CTA Chest W/WO Contrast IMPRESSION: 1. No demonstrated pulmonary embolism or arterial dissection. 2. There is bilateral pneumonia. Electronically Signed: Calvin Aguiar MD at 21:46 EST , Service support ,
[2021-11-07 21:27] LABS: Mucous, Urine 0 SEEN /hpf (<or=2+); Red Blood Cells-Urine 0 SEEN /hpf (0-5); Squamous Epithelial Cells - UA 0 SEEN /hpf (5-10); White Blood Cells 0 SEEN /hpf (0-5)
[2021-11-07 21:28] LABS: Color, Urine Yellow (Yellow); Glucose, Dipstick Normal (Normal); Ketone-Dipstick 5 mg/dl (Negative); Leukocyte Esterase-Dipstick 25 /ul (Negative); Nitrite-Dipstick Negative (Negative); Occult Blood-Urine Negative /ul (Negative); Protein-Dipstick 100 mg/dl (Negative); Specific Gravity, Urine 1.025 (1.002-1.030); Urine Bilirubin Dipstick Negative (Negative); Urine Clarity Clear (Clear); Urine Urobilinogen Normal (Normal)
[2021-11-07 21:36] LABS: Bacteria RARE /hpf (None Seen)
--- NOTE | 2021-11-07 23:37 | HP.PCM.HOS_ITS ---
HPI - General General Date of Admission: 11/07/21 HPI Narrative DANIEL ARREOLA, is a 81 F with a significant history of CKD stage IIIa; liver transplant who presents to the emergency department because she is unable to take care of herself. She report that for the past 4 days she has been unable to take care of herself. Also she reports diffuse abdominal pain. Further, she reports headache. She reports shortness of breath. She had a cough that was initially productive. But her cough has since improved . Now when she coughs it is dry. She does not cough as much as previous. She reports fever. She reports chills that has resolved. She reports muscle aches. She reported she has had a good appetite. At the time of emergency doctor evaluation patient ex- was in patient room. Reportedly patient and ex- both tested positive for COVID-19 on November 04. Patient covid-like symptoms started a day before November 04. Emergency department doctor reports that per patient ex dementia is suspected and patient cannot live at home by herself. Per emergency department doctor patient was not forthcoming with history except she stated that she has abdominal pain. At the time of hospitalist examination patient was forthcoming with history. [facility] Medical History Dementia HTN (hypertension) Home Medications tacrolimus 1 mg PO BID 09/09/13 [History Last Taken 06/06/20] aspirin 1 tab PO DAILY 06/07/20 [History Last Taken 06/06/20] metoprolol succinate 50 mg PO DAILY 06/07/20 [History Last Taken 06/06/20] Allergy/AdvReac Type Severity Reaction Status Date / Time No Known Allergies Allergy Verified 11/07/21 17:36 Family History Other Heart disease Surgical History Liver transplant recipient Social History Smoking Status: Never smoker ROS ROS Narrative Pertinent positives and pertinent negatives as noted in HPI. All other systems were reviewed and are negative. Vital Signs Vital Signs Vital Signs: 11/07/21 17:34 11/07/21 17:36 11/07/21 18:36 Temperature 97.6 F L 97.6 F L 97.6 F L Temperature Source Temporal Temporal Temporal Pulse Rate 80 80 71 Respiratory Rate 15 15 28 H Respiratory Effort Respiratory Pattern Blood Pressure 91/60 91/60 112/62 Blood Pressure Mean 70 70 78 Pulse Ox 96 96 96 Oxygen Delivery Method Room Air Room Air Room Air 11/07/21 18:45 11/07/21 19:07 11/07/21 19:39 Temperature 97.6 F L Temperature Source Temporal Pulse Rate 61 72 Respiratory Rate 30 H 17 Respiratory Effort Normal Non-Labored Respiratory Pattern Normal Blood Pressure 106/55 L 123/60 H Blood Pressure Mean 72 81 Pulse Ox 98 95 Oxygen Delivery Method Room Air 11/07/21 22:26 11/07/21 22:55 Temperature 97.5 F L 98.0 F Temperature Source Temporal Temporal Pulse Rate 64 64 Respiratory Rate 16 20 H Respiratory Effort Respiratory Pattern Blood Pressure 106/65 122/51 H Blood Pressure Mean 78 74 Pulse Ox 96 94 Oxygen Delivery Method Room Air Room Air Weight Weight: 52.163 kg Body Mass Index (BMI) 22.4 Physical Exam Narrative Physical exam: General: Elderly frail female. Head: Normocephalic, atraumatic, no tenderness Eyes: PERRLA, EOMI ENT, no trauma, dry mucous membranes, no rhinorrhea Neck: Nontender, full range of motion, no spinal tenderness, deformities, step- off CVS: Regular rate and rhythm. S1-S2 present. No murmur, gallop or rub. Respiratory : clear to auscultation bilaterally, chest wall nontender, no wheezing Abdomen: Healed scar on abdomen. Soft, tender, nondistended, normal bowel sounds, no masses : Deferred Back: Nontender, no CVA tenderness, no midline spinal tenderness, deformities, step-offs Extremities: Nontender full range of motion, no trauma Skin: Normal color, no trauma, abrasions Neuro: Alert, oriented, cranial nerves II through XII grossly intact. Psychiatry: Normal mood. Normal affect. Not depressed. Not anxious. Results Lab / Micro Data Result Diagrams: 11/07/21 18:43 11/07/21 18:43 Labs: Laboratory Results - last 24 hr 11/07/21 18:43: WBC 2.9 L, RBC 4.59, Hgb 13.6, Hct 41.7, MCV 90.8, MCH 29.6, MCHC 32.6, RDW Std Deviation 47.7 H, RDW Coeff of Noe 14.2, Plt Count 143 L, MPV 11.4, Immature Gran % (Auto) 1.000 H, Neut % (Auto) 64.4, Lymph % (Auto) 23.9, [place] % (Auto) 10.4 H, Eos % (Auto) 0.0, Baso % (Auto) 0.3, Absolute Neuts (auto) 1.9 L, Absolute Lymphs (auto) 0.69 L, Nucleated RBC % 0, Differential Comment SCANNED 11/07/21 18:43: Sodium 141, Potassium 4.1, Chloride 105, Carbon Dioxide 26.0, Anion Gap 10, BUN 39 H, Creatinine 1.48 H, Estim Creat Clear Calc 20.69, Est GFR (MDRD) Af Amer 43 L, Est GFR (MDRD) Non-Af 36 L, BUN/Creatinine Ratio 26.4 H, Glucose 103, Calcium 9.1, Total Bilirubin 0.40, AST 64 H, ALT 28, Alkaline Phosphatase 45, Total Protein 7.0, Albumin 2.7 L, Globulin 4.3 H, Albumin/Glob ulin Ratio 0.6 L, Lipase 225 11/07/21 21:20: Urine Color Yellow, Urine Clarity Clear, Urine pH 5.0, Ur Specific [place] 1.025, Urine Protein 100 H, Urine Glucose (UA) Normal, Urine Ketones 5 H, Urine Occult Blood Negative, Urine Nitrite Negative, Urine Bilirubin Negative, Urine Urobilinogen Normal, Ur Leukocyte Esterase 25 H, Urine RBC 0 SEEN, Urine WBC 0 SEEN, Ur Squamous Epith Cells 0 SEEN, Urine Bacteria RARE, Urine Mucus 0 SEEN Radiology Impression Chest X-Ray 11/07/21 18:56 IMPRESSION: Bilateral pneumonia. Electronically Signed: Calvin Aguiar MD at 19:23 EST , Service support , Brain CT 11/07/21 20:30 IMPRESSION: No acute intracranial pathology. Chronic small vessel ischemic changes. Electronically Signed: Naveen Miller DO at 21:50 EST Tel , Service support , Chest CTA 11/07/21 20:31 IMPRESSION: 1. No demonstrated pulmonary embolism or arterial dissection. 2. There is bilateral pneumonia. Electronically Signed: Calvin Aguiar MD at 21:46 EST , Service support , Assessment & Plan Assessment/Plan (1) Adult failure to thrive: PLAN: Adult failure to thrive PT and OT to work with patient. Case management consult for disposition. Dehydration BUN of 39. Creatinine of 1.48. BUN/creatinine is 26.4. Received normal saline bolus emergency department. Gentle IV hydration. Trend BMP. CKD stage IIIb Creatinine is stable. Trend BMP. Abdominal pain Mylanta ordered. We will get a KUB. Labs reviewed showed normal liver enzymes. COVID-19 infection Chest CTA and independent reviewed showed bilateral infiltrates. Review of labs showed a white count of 2.9 with bandemia of 1%; and thrombocytopenia with platelet of 143. Patient is not hypoxic. Placed on enhanced Covid precautions. DVT prophylaxis: Subcutaneous heparin ordered Charges/Coding Visit Charges Inpatient E&M: 28029 Init Hosp L3
[2021-11-08] VITALS (11 sets, daily range): BP systolic 121–146; BP diastolic 46–67; PULSE 62–79; RESP 16–18; TEMP 36.5–37; O2SAT 89–97; BMI 18.3
--- NOTE | 2021-11-08 00:15 | RAD_ITS ---
EXAM: XR ABDOMEN, 1 VIEW CLINICAL INDICATION: Abdominal Pain TECHNIQUE: Frontal supine view of the abdomen/pelvis. This report was created using [employer] report generation technology. COMPARISON: KUB 03/24/2021. FINDINGS: LOWER THORAX: No acute pathology. GASTROINTESTINAL TRACT: Prominent stool and gas throughout the colon. No definite small bowel obstruction. ORGANS: Contrast within the left and right urinary collecting system to include the kidneys and bladder. No obvious filling defects on limited assessment. No organomegaly. No abnormal calcifications. BONES/JOINTS: Degenerative changes of the spine. SOFT TISSUES: No acute pathology. OTHER FINDINGS: See recent chest radiography for chest findings. RAD/Abdomen Single View (Portable) IMPRESSION: Prominent gas throughout the large and small bowel Electronically Signed: Ruy Felipe MD at 2:49 EST Tel , Service support ,
[2021-11-08] MEDS: Mag Hydrox/Al Hydrox/Simeth 30 ML UDC PO (01:00)
[2021-11-08] MEDS: 0.9% Normal Saline 1,000 ML 75 ML IV ×3 (01:00→14:39)
[2021-11-08 06:45] LABS: Absolute Lymphocyte Count 0.68 X10^3/uL (0.83-4.51); Absolute Neutrophil Count 1.3 X10^3/uL (2.0-7.7); Basophil# 0.01 X10^3/uL; Basophil% 0.4 % (0-1); Hemoglobin 12.9 g/dL (12.0-15.0); Lymphocyte # 0.68 X10^3/ul (0.83-4.51); Lymphocyte % 30.4 % (19-41); Mean Corp Hgb Conc 31.5 g/dL (32-36); Mean Corpuscular Hgb 29.2 pg (27.0-32.0); Mean Corpuscular Volume 92.8 fL (81-99); Mean Platelet Vol. 11.3 fl (6.2-12.0); Monocyte# 0.21 X10^3/uL; Monocyte% 9.4 % (0-10); NRBC Flagged by Analyzer 0 % (0-5); Neutrophil # 1.33 X10^3/uL (2.7-7.7); Neutrophil % 59.4 % (47-70); POSITIVE MORPHOLOGY YES; Platelet Count 112 K/mm3 (150-450); RBC Distribution Width CV 14.2 % (11.6-14.6); RBC Distribution Width SD 48.4 fl (35.1-43.9); Red Blood Count 4.42 M/mm3 (4.2-5.4); White Blood Count 2.2 K/mm3 (4.4-11.0)
[2021-11-08 06:52] LABS: Differential Indicated SCAN CRITERIA MET
[2021-11-08 07:03] LABS: Anion Gap 8 (5-15); BUN 34 mg/dL (7-18); BUN/Creat Ratio 30.4 RATIO (10-20); Chloride 109 mmol/L (98-107); Creatinine, Serum 1.12 mg/dL (0.55-1.02); EST Glomerular Filtration Rate 49 mL/min (>60); Est Glom Filt Rate - Afr Amer 60 mL/min (>60); Estimated Creatinine Clearance 25.59 ml/min; Glucose 100 mg/dL (74-106); Potassium 3.7 mmol/L (3.5-5.1); Sodium Level 141 mmol/L (136-145)
[2021-11-08 07:24] LABS: Differential Comment SCANNED
[2021-11-08] MEDS: Metoprolol(XL)Succ 50 MG Tablet PO (09:50)
[2021-11-08] MEDS: Enoxaparin 30 MG/0.3 ML Syringe SC (09:57)
[2021-11-08] MEDS: Aspirin 81 MG TAB.CHEW PO (09:57)
[2021-11-08] MEDS: Tacrolimus Anhydrous 1 MG Capsule PO ×2 (09:58→20:24)
--- NOTE | 2021-11-08 10:07 | CASEMGMT ---
Addendum entered by Kristina Garcia 11/08/21 14:40: Pt dtr called in and states that she feels pt should not come home. She states pt has progressively losing her memory. She states she can stay with pt if need be s/t. With pt permission, made her aware that the plan is pending how pt does with therapy. Discussed HHC vs SNF. Pt dtr is agreeable to HHC option. She states that pt was also told she could have an industrial maintenance repairer through disability that she is checking on. She is aware that the HHC is a s/t option and if this is the route taken, a care home plan will need to be determined. She verbalizes understanding. Original Note: SHE LESLIE Assessment: Face to Face with pt for initial transition planning/care coordination assessment. SHE LESLIE introduced self and role at [facility], pt voices understanding and consents to assessment. Pt is A/O x3, did not know the president, and answers all questions appropriately at this time. Pt sitting up in bed. Care providers, pharmacy, and demographics verified/updated. Admitting Dx: acute encephalopathy PCP: [facility]:Pt denies. Preferred Pharmacy: [facility] Insurance: [employer] [facility], [facility] Community Plan Prescription Benefit: yes LW/HPOA: Pt states she has a LW/DPOA and her DPOA is Darryl Driscoll, son. She is aware this is not on file at [facility] and she may have it brought in to be scanned into the chart. LNOK: Darryl Driscoll, son; Cheryl Rivera, dtr; Matt Americo, ex Living Arrangements: Pt lives alone in a mobile home with 2 steps to enter with a rail. Pt reports she is I in ADL's and denies concerns at home. Transportation: Pt drives self and denies concerns with transportation. DME/HHC/SNF: Pt denies having any DME in the home, states she has HHC in the past but is unsure who provided this. Pt denies SNF stays. Pt tested positive at [facility]. She states she has family who can provide her with groceries and supplies while in quarantine. Discussed local in network DME companies should pt need home O2, pt denies preference. Pt states she does feel a little weak, but she would like to go home. She is open to having HHC come see her. Therapy has not worked with patient yet. Pt is agreeable to seeing what therapy recommends and seeing how she does working with them. RN CM to follow. Pt states no further concerns/needs. CM to follow. Advised pt to ask CM if any further question/concerns/needs arise, voices understanding. Pt Goal: Home with HHC Plan: TBD, pending therapy and course of treatment.
[2021-11-08] MEDS: Ondansetron 4 MG/2 ML Vial IV (10:12)
[2021-11-08] MEDS: Acetaminophen 325 MG Tablet 650 MG PO (10:12)
--- NOTE | 2021-11-08 15:20 | PN.HOSP_ITS ---
Subjective Subjective Feels little bit better, however now having some oxygen requirement Objective Data Objective Data Vital Signs: Vital Signs Temp Pulse Resp BP Pulse Ox 98.0 F 68 18 125/57 H 97 11/08/21 12:44 11/08/21 12:44 11/08/21 12:44 11/08/21 12:44 11/08/21 12:44 Oxygen Flow Rate (L/min) 1 Oxygen Delivery Method Nasal Cannula Weight: 93 lb 14.671 oz Body Mass Index (BMI) 18.3 Intake & Output: Intake and Output for Last 24 Hours 11/07/21 11/08/21 11/09/21 03:59 03:59 03:59 Intake Total 500 / 500 1473.75 / 1473.75 Output Total 150 / 150 Balance 500 / 500 1323.75 / 1323.75 Lab / Micro Data Result Diagrams: 11/08/21 06:20 11/08/21 06:20 Labs: Laboratory Results - last 24 hr 11/07/21 18:43: WBC 2.9 L, RBC 4.59, Hgb 13.6, Hct 41.7, MCV 90.8, MCH 29.6, MCHC 32.6, RDW Std Deviation 47.7 H, RDW Coeff of Noe 14.2, Plt Count 143 L, MPV 11.4, Immature Gran % (Auto) 1.000 H, Neut % (Auto) 64.4, Lymph % (Auto) 23.9, Amelia % (Auto) 10.4 H, Eos % (Auto) 0.0, Baso % (Auto) 0.3, Absolute Neuts (auto) 1.9 L, Absolute Lymphs (auto) 0.69 L, Nucleated RBC % 0, Differential Comment SCANNED 11/07/21 18:43: Sodium 141, Potassium 4.1, Chloride 105, Carbon Dioxide 26.0, Anion Gap 10, BUN 39 H, Creatinine 1.48 H, Estim Creat Clear Calc 20.69, Est GFR (MDRD) Af Amer 43 L, Est GFR (MDRD) Non-Af 36 L, BUN/Creatinine Ratio 26.4 H, Glucose 103, Calcium 9.1, Total Bilirubin 0.40, AST 64 H, ALT 28, Alkaline Phosphatase 45, Total Protein 7.0, Albumin 2.7 L, Globulin 4.3 H, Albumin/Globulin Ratio 0.6 L, Lipase 225 11/07/21 21:20: Urine Color Yellow, Urine Clarity Clear, Urine pH 5.0, Ur Specific [place] 1.025, Urine Protein 100 H, Urine Glucose (UA) Normal, Urine Ketones 5 H, Urine Occult Blood Negative, Urine Nitrite Negative, Urine Bilirubin Negative, Urine Urobilinogen Normal, Ur Leukocyte Esterase 25 H, Urine RBC 0 SEEN, Urine WBC 0 SEEN, Ur Squamous Epith Cells 0 SEEN, Urine Bacteria RARE, Urine Mucus 0 SEEN 11/08/21 02:20: Ammonia 21.0 11/08/21 06:20: WBC 2.2 L, RBC 4.42, Hgb 12.9, Hct 41.0, MCV 92.8, MCH 29.2, MCHC 31.5 L, RDW Std Deviation 48.4 H, RDW Coeff of Noe 14.2, Plt Count 112 L, MPV 11.3, Immature Gran % (Auto) 0.400, Neut % (Auto) 59.4, Lymph % (Auto) 30.4, Amelia % (Auto) 9.4, Eos % (Auto) 0.0, Baso % (Auto) 0.4, Absolute Neuts (auto) 1.3 L, Absolute Lymphs (auto) 0.68 L, Nucleated RBC % 0, Differential Comment SCANNED 11/08/21 06:20: Sodium 141, Potassium 3.7, Chloride 109 H, Carbon Dioxide 24.0, Anion Gap 8, BUN 34 H, Creatinine 1.12 H, Estim Creat Clear Calc 25.59, Est GFR (MDRD) Af Amer 60, Est GFR (MDRD) Non-Af 49 L, BUN/Creatinine Ratio 30.4 H, Glucose 100, Calcium 9.0 Radiography Diagnostic Testing: Radiology Impression Chest X-Ray 11/07/21 18:56 IMPRESSION: Bilateral pneumonia. Electronically Signed: Calvin Aguiar MD at 19:23 EST , Service support , Brain CT 11/07/21 20:30 IMPRESSION: No acute intracranial pathology. Chronic small vessel ischemic changes. Electronically Signed: Naveen Miller DO at 21:50 EST Tel , Service support , Chest CTA 11/07/21 20:31 IMPRESSION: 1. No demonstrated pulmonary embolism or arterial dissection. 2. There is bilateral pneumonia. Electronically Signed: Calvin Aguiar MD at 21:46 EST , Service support , KUB X-Ray 11/08/21 00:15 IMPRESSION: Prominent gas throughout the large and small bowel Electronically Signed: Ruy Felipe MD at 2:49 EST Tel , Service support , Physical Exam Const alert, oriented x3 and no apparent distress General Appearance: cooperative HEENT normocephalic and moist oral mucous membranes Eyes PERRL, EOMs intact bilaterally and conjunctivae normal Neck supple and no JVD Resp normal respiratory effort, no retractions and no use of accessory muscles Auscultation: crackles; Negative for rales, rhonchi or wheezes Cardio regular rate, regular rhythm, S1 normal heart sound, S2 normal heart sound and no murmurs GI soft to palpation, non-tender and non-distended; Negative for hepatosplenomegaly Extremity no clubbing, cyanosis or edema Skin no rashes or lesions noted Neuro no focal motor deficits and no sensory deficits noted Psych affect normal Appearance: appropriate Assessment & Plan Assessment/Plan (1) Adult failure to thrive: PLAN: 1. Adult failure to thrive and dehydration secondary to COVID-19 pneumonia ?Symptoms started on the or 01 November and now she does have some hypoxia when she was on room air on admission therefore we will start her on Decadron and remdesivir ?Continue with Lovenox for DVT prophylaxis ?PT/OT for evaluation 2. History of liver transplant ?Continue with her tachycardia S we will monitor her liver function 3. CKD stage IIIb ?Creatinine is stable ?We will continue to monitor DVT: Lovenox Charges/Coding Visit Charges Inpatient E&M: 28173 Subs Hosp L2
--- NOTE | 2021-11-08 18:05 | NURSING ---
called francisco Rivera to get permission to run [facility]
[2021-11-09] VITALS (12 sets, daily range): BP systolic 117–142; BP diastolic 46–60; PULSE 53–68; RESP 16–18; TEMP 36.4–36.8; O2SAT 88–95
[2021-11-09 06:56] LABS: Hematocrit 39.4 % (37-47); Hemoglobin 12.7 g/dL (12.0-15.0); Mean Corp Hgb Conc 32.2 g/dL (32-36); Mean Corpuscular Hgb 29.5 pg (27.0-32.0); Mean Corpuscular Volume 91.6 fL (81-99); Mean Platelet Vol. 11.6 fl (6.2-12.0); Platelet Count 110 K/mm3 (150-450); RBC Distribution Width CV 14.5 % (11.6-14.6); RBC Distribution Width SD 48.6 fl (35.1-43.9); White Blood Count 3.1 K/mm3 (4.4-11.0)
[2021-11-09 07:35] LABS: ALB/GLOB Ratio 0.6 RATIO (0.9-2.4); AST(SGOT) 59 U/L (15-37); Alanine Aminotransfer ALT/SGPT 23 U/L (13-56); Albumin, Serum 2.2 g/dL (3.2-5.0); Alkaline Phosphatase 40 U/L (45-117); Anion Gap 8 (5-15); BUN 27 mg/dL (7-18); BUN/Creat Ratio 31.1 RATIO (10-20); Calcium,Total 8.7 mg/dL (8.5-10.1); Chloride 113 mmol/L (98-107); Creatinine, Serum 0.87 mg/dL (0.55-1.02); EST Glomerular Filtration Rate 66 mL/min (>60); Est Glom Filt Rate - Afr Amer 80 mL/min (>60); Estimated Creatinine Clearance 32.95 ml/min; Glucose 86 mg/dL (74-106); Potassium 4.2 mmol/L (3.5-5.1); Protein, Total 6.2 g/dL (6.4-8.2); Sodium Level 144 mmol/L (136-145)
[2021-11-09] MEDS: dexAMETHasone 4 MG Tablet 6 MG PO (10:32)
[2021-11-09] MEDS: Acetaminophen 325 MG Tablet 650 MG PO ×2 (10:33→23:53)
[2021-11-09] MEDS: Aspirin 81 MG TAB.CHEW PO (10:33)
[2021-11-09] MEDS: 0.9% Saline Lock 10 ML Syringe IV ×2 (10:33→20:57)
[2021-11-09] MEDS: Tacrolimus Anhydrous 1 MG Capsule PO ×2 (10:33→20:57)
[2021-11-09] MEDS: Enoxaparin 30 MG/0.3 ML Syringe SC (10:33)
[2021-11-09] MEDS: Metoprolol(XL)Succ 50 MG Tablet PO (10:33)
--- NOTE | 2021-11-09 17:56 | PCM.PN.HOSP ---
Subjective Subjective Denies any significant shortness of breath but still states that she has some abdominal discomfort. No further diarrhea. Objective Data Objective Data Vital Signs: Vital Signs Temp Pulse Resp BP Pulse Ox 97.5 F L 63 16 128/54 H 95 11/09/21 14:21 11/09/21 14:21 11/09/21 14:21 11/09/21 14:21 11/09/21 14:21 Oxygen Flow Rate (L/min) 2 Oxygen Delivery Method Nasal Cannula Weight: 93 lb 14.671 oz Body Mass Index (BMI) 18.3 Intake & Output: Intake and Output for Last 24 Hours 11/08/21 11/09/21 11/10/21 03:59 03:59 03:59 Intake Total 500 / 500 2242.50 / 2242.50 400 / 400 Output Total 150 / 150 Balance 500 / 500 2092.50 / 2092.50 400 / 400 Lab / Micro Data Result Diagrams: 11/09/21 06:35 11/09/21 06:35 Labs: Laboratory Results - last 24 hr 11/09/21 06:35: WBC 3.1 L, RBC 4.30, Hgb 12.7, Hct 39.4, MCV 91.6, MCH 29.5, MCHC 32.2, RDW Std Deviation 48.6 H, RDW Coeff of Noe 14.5, Plt Count 110 L, MPV 11.6 11/09/21 06:35: Sodium 144, Potassium 4.2, Chloride 113 H, Carbon Dioxide 23.0, Anion Gap 8, BUN 27 H, Creatinine 0.87, Estim Creat Clear Calc 32.95, Est GFR (MDRD) Af Amer 80, Est GFR (MDRD) Non-Af 66, BUN/Creatinine Ratio 31.1 H, Glucose 86, Calcium 8.7, Total Bilirubin 0.50, AST 59 H, ALT 23, Alkaline Phosphatase 40 L, Total Protein 6.2 L, Albumin 2.2 L, Globulin 4.0, Albumin/Globulin Ratio 0.6 L Physical Exam Narrative Const alert, oriented x3 and no apparent distress General Appearance: cooperative HEENT normocephalic and moist oral mucous membranes Eyes PERRL, EOMs intact bilaterally and conjunctivae normal Neck supple and no JVD Resp normal respiratory effort, no retractions and no use of accessory muscles Auscultation: Negative for crackles, rales, rhonchi or wheezes Cardio regular rate, regular rhythm, S1 normal heart sound, S2 normal heart sound and no murmurs GI soft to palpation, non-tender and non-distended; Negative for hepatosplenomegaly Extremity no clubbing, cyanosis or edema Skin no rashes or lesions noted Neuro no focal motor deficits and no sensory deficits noted Psych affect normal Appearance: appropriate Assessment & Plan Assessment/Plan (1) Adult failure to thrive: (2) COVID-19: PLAN: 1. Adult failure to thrive and dehydration secondary to COVID-19 pneumonia ?Symptoms started on the or 01 November and now she does have some hypoxia when she was on room air on admission therefore we will start her on Decadron and remdesivir ?Continue with Lovenox for DVT prophylaxis ?PT/OT for evaluation 2. History of liver transplant ?Continue with her tacrolimus we will monitor her liver function 3. CKD stage IIIb ?Creatinine is stable ?We will continue to monitor DVT: Lovenox Charges/Coding Visit Charges Inpatient E&M: 80815 Subs Hosp L2
[2021-11-10] VITALS (13 sets, daily range): BP systolic 101–136; BP diastolic 44–64; PULSE 50–99; RESP 18–24; TEMP 36.4–36.6; O2SAT 90–95
[2021-11-10] MEDS: Acetaminophen 325 MG Tablet 650 MG PO (06:49)
[2021-11-10 07:44] LABS: Hematocrit 42.4 % (37-47); Hemoglobin 13.3 g/dL (12.0-15.0); Mean Corp Hgb Conc 31.4 g/dL (32-36); Mean Corpuscular Hgb 28.7 pg (27.0-32.0); Mean Corpuscular Volume 91.4 fL (81-99); Mean Platelet Vol. 11.5 fl (6.2-12.0); Platelet Count 156 K/mm3 (150-450); RBC Distribution Width CV 14.6 % (11.6-14.6); Red Blood Count 4.64 M/mm3 (4.2-5.4); White Blood Count 3.7 K/mm3 (4.4-11.0)
[2021-11-10 08:04] LABS: ALB/GLOB Ratio 0.5 RATIO (0.9-2.4); AST(SGOT) 67 U/L (15-37); Alanine Aminotransfer ALT/SGPT 25 U/L (13-56); Albumin, Serum 2.2 g/dL (3.2-5.0); Alkaline Phosphatase 41 U/L (45-117); Anion Gap 6 (5-15); BUN 45 mg/dL (7-18); BUN/Creat Ratio 42.5 RATIO (10-20); Calcium,Total 9.1 mg/dL (8.5-10.1); Chloride 111 mmol/L (98-107); Creatinine, Serum 1.06 mg/dL (0.55-1.02); EST Glomerular Filtration Rate 53 mL/min (>60); Est Glom Filt Rate - Afr Amer 64 mL/min (>60); Estimated Creatinine Clearance 27.04 ml/min; Globulin 4.1 g/dL (2.2-4.2); Glucose 124 mg/dL (74-106); Potassium 4.7 mmol/L (3.5-5.1); Protein, Total 6.3 g/dL (6.4-8.2); Sodium Level 141 mmol/L (136-145)
[2021-11-10] MEDS: Tacrolimus Anhydrous 1 MG Capsule PO ×2 (08:11→22:19)
[2021-11-10] MEDS: Aspirin 81 MG TAB.CHEW PO (08:11)
[2021-11-10] MEDS: Metoprolol(XL)Succ 50 MG Tablet PO (08:11)
[2021-11-10] MEDS: dexAMETHasone 4 MG Tablet 6 MG PO (08:12)
[2021-11-10] MEDS: Enoxaparin 30 MG/0.3 ML Syringe SC (08:12)
--- NOTE | 2021-11-10 09:20 | CASEMGMT ---
SHE LESLIE spoke with pt to dtr to verify her availability to stay with pt. She now states that she is caring for her grandson in [place] and is unable to stay with pt. She states she prefers for pt to go to a SNF s/t so they can put more in place and have more resources for when pt comes home. She is aware that currently [facility] is the only facility accepting COVID patients. She states this is fine and she is agreeable to this. She thanks this SHE LESLIE for the call.
[2021-11-10] MEDS: 0.9% Saline Lock 10 ML Syringe IV ×2 (09:46→22:19)
--- NOTE | 2021-11-10 10:06 | CASEMGMT ---
Addendum entered by Ludmila Haywood 11/10/21 13:53: Social Work SW spoke w/Catalina at [facility][1]. They can take pt, precert is waived. They can take her as of 11/14/21. She planned to call pt's daughter. SW also called daughter, message left to call this SW back. SW will continue to follow. LOLIS Tanner Addendum entered by Ludmila Haywood 11/10/21 10:20: Social Work SW called Catalina at [facility][1] and made her aware of the referral, she will let SW know if they can take pt. LOLIS Tanner Original Note: Social Work CM spoke w/daughter, she will not be able to care for pt after discharge, and agreeable to SNF for pt. SW called daughter, reviewed SNF options w/her. SW explained that as per physician, pt will not be ready until Saturday at the earliest. Therefore, additional senior care options will be available as pt will be 10 days from her COVID+ test, and there are more facilities able to take patients at that time. SW reviewed possible facilities, it pt's preferred geographic area,that take pt's insurance. SW reviewed the quality and resource use data as well. Daughter asked for a referral to be sent to [facility]. Referral faxed, SW will follow up w/[facility] shortly. LOLIS Tanner
--- NOTE | 2021-11-10 13:00 | PN.HOSP_ITS ---
Subjective Subjective Well, maintaining her oxygen saturations and anywhere between 2 and 4 L of nasal cannula. Abdominal pain is controlled and she is having bowel movements. Objective Data Objective Data Vital Signs: Vital Signs Temp Pulse Resp BP Pulse Ox 97.7 F L 57 L 20 H 101/48 L 94 11/10/21 09:48 11/10/21 09:48 11/10/21 09:48 11/10/21 09:48 11/10/21 09:48 Oxygen Flow Rate (L/min) 3 Oxygen Delivery Method Nasal Cannula Weight: 93 lb 14.671 oz Body Mass Index (BMI) 18.3 Intake & Output: Intake and Output for Last 24 Hours 11/09/21 11/10/21 11/11/21 03:59 03:59 03:59 Intake Total 2242.50 / 2242.50 460 / 460 250 / 250 Output Total 150 / 150 Balance 2092.50 / 2092.50 460 / 460 250 / 250 Lab / Micro Data Result Diagrams: 11/10/21 07:10 11/10/21 07:10 Labs: Laboratory Results - last 24 hr 11/10/21 07:10: WBC 3.7 L, RBC 4.64, Hgb 13.3, Hct 42.4, MCV 91.4, MCH 28.7, MCHC 31.4 L, RDW Std Deviation 49.0 H, RDW Coeff of Noe 14.6, Plt Count 156, MPV 11.5 11/10/21 07:10: Sodium 141, Potassium 4.7, Chloride 111 H, Carbon Dioxide 24.0, Anion Gap 6, BUN 45 H, Creatinine 1.06 H, Estim Creat Clear Calc 27.04, Est GFR (MDRD) Af Amer 64, Est GFR (MDRD) Non-Af 53 L, BUN/Creatinine Ratio 42.5 H, Glu cose 124 H, Calcium 9.1, Total Bilirubin 0.50, AST 67 H, ALT 25, Alkaline Phosphatase 41 L, Total Protein 6.3 L, Albumin 2.2 L, Globulin 4.1, Albumin/Globulin Ratio 0.5 L Physical Exam Narrative Const alert, oriented x3 and no apparent distress General Appearance: cooperative HEENT normocephalic and moist oral mucous membranes Eyes PERRL, EOMs intact bilaterally and conjunctivae normal Neck supple and no JVD Resp normal respiratory effort, no retractions and no use of accessory muscles Auscultation: crackles; Negative for rales, rhonchi or wheezes Cardio regular rate, regular rhythm, S1 normal heart sound, S2 normal heart sound and no murmurs GI soft to palpation, non-tender and non-distended; Negative for hepatosplenomegaly Extremity no clubbing, cyanosis or edema Skin no rashes or lesions noted Neuro no focal motor deficits and no sensory deficits noted Psych affect normal Appearance: appropriate Assessment & Plan Assessment/Plan (1) Adult failure to thrive: (2) COVID-19: PLAN: 1. Adult failure to thrive and dehydration secondary to COVID-19 pneumonia ?Symptoms started on the or 01 November and now she does have some hypoxia when she was on room air on admission therefore we will start her on Decadron and remdesivir ?Continue with Lovenox for DVT prophylaxis ?PT/OT for evaluation likely need placement to SNF 2. History of liver transplant ?Continue with her tacrolimus we will monitor her liver function 3. CKD stage IIIb ?Creatinine is stable ?We will continue to monitor DVT: Lovenox Charges/Coding Visit Charges Inpatient E&M: 10205 Subs Hosp L2
--- NOTE | 2021-11-10 17:14 | NURSING ---
MIGUELINA ARREOLA CALLED TO CHECK ON PT, HE IS ALREADY AWARE PT IS IN 323 AND READ THE PHONE # TO THE ROOM TO THIS NURSE.
[2021-11-10] MEDS: Haloperidol Lactate 5 MG/ML Vial 2 MG IM (23:32)
[2021-11-11] VITALS (12 sets, daily range): BP systolic 112–148; BP diastolic 50–68; PULSE 50–77; RESP 10–32; TEMP 36.3–36.8; O2SAT 92–97
[2021-11-11 07:49] LABS: Hematocrit 40.5 % (37-47); Hemoglobin 13.5 g/dL (12.0-15.0); Mean Corp Hgb Conc 33.3 g/dL (32-36); Mean Corpuscular Hgb 29.9 pg (27.0-32.0); Mean Corpuscular Volume 89.8 fL (81-99); Mean Platelet Vol. 11.4 fl (6.2-12.0); Platelet Count 195 K/mm3 (150-450); RBC Distribution Width CV 14.5 % (11.6-14.6); RBC Distribution Width SD 48.2 fl (35.1-43.9); Red Blood Count 4.51 M/mm3 (4.2-5.4); White Blood Count 7.8 K/mm3 (4.4-11.0)
[2021-11-11 07:55] LABS: Scan Indicated on CBC? Y/N NO
[2021-11-11] MEDS: Furosemide 20 MG/2 ML VIAL IV (08:00)
[2021-11-11] MEDS: 0.9% Saline Lock 10 ML Syringe IV ×2 (08:00→21:00)
[2021-11-11 08:10] LABS: ALB/GLOB Ratio 0.6 RATIO (0.9-2.4); AST(SGOT) 72 U/L (15-37); Alanine Aminotransfer ALT/SGPT 26 U/L (13-56); Albumin, Serum 2.2 g/dL (3.2-5.0); Alkaline Phosphatase 45 U/L (45-117); Anion Gap 8 (5-15); BUN 63 mg/dL (7-18); BUN/Creat Ratio 61.2 RATIO (10-20); Chloride 108 mmol/L (98-107); Creatinine, Serum 1.03 mg/dL (0.55-1.02); EST Glomerular Filtration Rate 54 mL/min (>60); Est Glom Filt Rate - Afr Amer 66 mL/min (>60); Estimated Creatinine Clearance 27.83 ml/min; Globulin 3.9 g/dL (2.2-4.2); Glucose 120 mg/dL (74-106); Potassium 4.9 mmol/L (3.5-5.1); Protein, Total 6.1 g/dL (6.4-8.2); Sodium Level 138 mmol/L (136-145)
[2021-11-11] MEDS: dexAMETHasone 4 MG Tablet 6 MG PO (10:03)
[2021-11-11] MEDS: Aspirin 81 MG TAB.CHEW PO (10:03)
[2021-11-11] MEDS: Tacrolimus Anhydrous 1 MG Capsule PO ×2 (10:03→21:01)
[2021-11-11] MEDS: Enoxaparin 30 MG/0.3 ML Syringe SC (10:03)
--- NOTE | 2021-11-11 13:01 | NURSING ---
assisted pt to call family
--- NOTE | 2021-11-11 13:43 | PN.HOSP_ITS ---
Subjective Subjective She is doing well however she has had increasing oxygen requirements, per nursing report she does not keep the nasal cannula on so is unsure whether or not this is a worsening of her COVID or visit the fact that she does not keep her oxygen on acute requiring us to turn it up Objective Data Objective Data Vital Signs: Vital Signs Temp Pulse Resp BP Pulse Ox 97.5 F L 77 22 H 122/59 H 96 11/11/21 12:31 11/11/21 12:31 11/11/21 12:31 11/11/21 12:31 11/11/21 12:31 Oxygen Flow Rate (L/min) 11 Oxygen Delivery Method High Flow Weight: 93 lb 14.671 oz Body Mass Index (BMI) 18.3 Intake & Output: Intake and Output for Last 24 Hours 11/10/21 11/11/21 11/12/21 03:59 03:59 03:59 Intake Total 460 / 460 250 / 250 300 / 300 Output Total 200 / 200 700 / 700 Balance 460 / 460 50 / 50 -400 / -400 Lab / Micro Data Result Diagrams: 11/11/21 07:29 11/11/21 07:29 Labs: Laboratory Results - last 24 hr 11/11/21 07:29: WBC 7.8, RBC 4.51, Hgb 13.5, Hct 40.5, MCV 89.8, MCH 29.9, MCHC 33.3 D, RDW Std Deviation 48.2 H, RDW Coeff of Noe 14.5, Plt Count 195, MPV 11.4 11/11/21 07:29: Sodium 138, Potassium 4.9, Chloride 108 H, Carbon Dioxide 22.0, Anion Gap 8, BUN 63 H, Creatinine 1.03 H, Estim Creat Clear Calc 27.83, Est GFR (MDRD) Af Amer 66, Est GFR (MDRD) Non-Af 54 L, BUN/Creatinine Ratio 61.2 H, Glucose 120 H, Calcium 9.0, Total Bilirubin 0.60, AST 72 H, ALT 26, Alkaline Ph osphatase 45, Total Protein 6.1 L, Albumin 2.2 L, Globulin 3.9, Albumin/Globulin Ratio 0.6 L Physical Exam Narrative Const alert, and no apparent distress, confused General Appearance: cooperative HEENT normocephalic and moist oral mucous membranes Eyes PERRL, EOMs intact bilaterally and conjunctivae normal Neck supple and no JVD Resp normal respiratory effort, no retractions and no use of accessory muscles Auscultation: crackles; Negative for rales, rhonchi or wheezes Cardio regular rate, regular rhythm, S1 normal heart sound, S2 normal heart sound and no murmurs GI soft to palpation, non-tender and non-distended; Negative for hepatosplenomegaly Extremity no clubbing, cyanosis or edema Skin no rashes or lesions noted Neuro no focal motor deficits and no sensory deficits noted Psych affect normal Appearance: appropriate Confused Assessment & Plan Assessment/Plan (1) Adult failure to thrive: (2) COVID-19: PLAN: 1. Adult failure to thrive and dehydration secondary to COVID-19 pneumonia ?Symptoms started on the or 01 November and now she does have some hypoxia when she was on room air on admission therefore we will start her on Decadron and remdesivir ? We will give her a dose of Lasix today track I's and O's as well as daily weights ? Encourage incentive spirometry ? We will continue to encourage her keeping her nasal cannula on ? If she does require higher oxygen concentrations then may need to get infectious disease involved for baricitinib ?Continue with Lovenox for DVT prophylaxis ?PT/OT for evaluation likely need placement to SNF 2. History of liver transplant ?Continue with her tacrolimus we will monitor her liver function 3. CKD stage IIIb ?Creatinine is stable ?We will continue to monitor DVT: Lovenox Charges/Coding Visit Charges Inpatient E&M: 08197 Subs Hosp L2
[2021-11-11] MEDS: Acetaminophen 325 MG Tablet 650 MG PO (21:01)
[2021-11-12] VITALS (14 sets, daily range): BP systolic 96–142; BP diastolic 55–81; PULSE 60–67; RESP 18–24; TEMP 36.6–36.8; O2SAT 80–97
[2021-11-12] MEDS: Acetaminophen 325 MG Tablet 650 MG PO ×3 (03:26→18:55)
[2021-11-12 07:02] LABS: Hematocrit 38.7 % (37-47); Hemoglobin 13.6 g/dL (12.0-15.0); Mean Corp Hgb Conc 35.1 g/dL (32-36); Mean Corpuscular Hgb 30.1 pg (27.0-32.0); Mean Corpuscular Volume 85.6 fL (81-99); Mean Platelet Vol. 11.4 fl (6.2-12.0); Platelet Count 202 K/mm3 (150-450); RBC Distribution Width CV 14.1 % (11.6-14.6); RBC Distribution Width SD 44.2 fl (35.1-43.9); Red Blood Count 4.52 M/mm3 (4.2-5.4)
[2021-11-12 07:12] LABS: Scan Indicated on CBC? Y/N NO
[2021-11-12 07:32] LABS: ALB/GLOB Ratio 0.6 RATIO (0.9-2.4); AST(SGOT) 52 U/L (15-37); Alanine Aminotransfer ALT/SGPT 28 U/L (13-56); Albumin, Serum 2.3 g/dL (3.2-5.0); Alkaline Phosphatase 47 U/L (45-117); Anion Gap 7 (5-15); BUN 60 mg/dL (7-18); BUN/Creat Ratio 57.1 RATIO (10-20); Chloride 105 mmol/L (98-107); Creatinine, Serum 1.05 mg/dL (0.55-1.02); EST Glomerular Filtration Rate 53 mL/min (>60); Est Glom Filt Rate - Afr Amer 64 mL/min (>60); Estimated Creatinine Clearance 27.94 ml/min; Globulin 3.9 g/dL (2.2-4.2); Glucose 131 mg/dL (74-106); Protein, Total 6.2 g/dL (6.4-8.2); Sodium Level 138 mmol/L (136-145)
[2021-11-12] MEDS: dexAMETHasone 4 MG Tablet 6 MG PO (10:52)
[2021-11-12] MEDS: Aspirin 81 MG TAB.CHEW PO (10:52)
[2021-11-12] MEDS: Tacrolimus Anhydrous 1 MG Capsule PO ×2 (10:53→20:15)
[2021-11-12] MEDS: Metoprolol(XL)Succ 50 MG Tablet PO (10:53)
[2021-11-12] MEDS: Enoxaparin 30 MG/0.3 ML Syringe SC (10:54)
[2021-11-12] MEDS: 0.9% Saline Lock 10 ML Syringe IV (10:56)
--- NOTE | 2021-11-12 15:34 | PCM.PN.HOSP ---
Subjective Subjective Patient was seen and examined today, she does not complain of any shortness of breath or chest pain. Patient's IV infiltrated today and I made the decision not to replace it. Patient is currently on high flow oxygen at 10 L/min via nasal cannula. Nursing states that patient pulls her oxygen off at times. Objective Data Objective Data Vital Signs: Vital Signs Temp Pulse Resp BP Pulse Ox 97.8 F 64 18 120/81 H 92 11/12/21 14:16 11/12/21 14:16 11/12/21 14:16 11/12/21 14:16 11/12/21 14:16 Oxygen Flow Rate (L/min) 10 Oxygen Delivery Method High Flow Weight: 43.6 kg Body Mass Index (BMI) 18.3 Intake & Output: Intake and Output for Last 24 Hours 11/10/21 11/11/21 11/12/21 23:59 23:59 23:59 Intake Total 310 / 310 350 / 350 490 / 490 Output Total 900 / 900 Balance 310 / 310 -550 / -550 490 / 490 Lab / Micro Data Result Diagrams: 11/13/21 06:30 11/13/21 06:30 Labs: Laboratory Results - last 24 hr 11/12/21 06:35: WBC 6.0, RBC 4.52, Hgb 13.6, Hct 38.7, MCV 85.6, MCH 30.1, MCHC 35.1 D, RDW Std Deviation 44.2 H, RDW Coeff of Noe 14.1, Plt Count 202, MPV 11.4 11/12/21 06:35: Sodium 138, Potassium 5.0, Chloride 105, Carbon Dioxide 26.0, Anion Gap 7, BUN 60 H, Creatinine 1.05 H, Estim Creat Clear Calc 27.94, Est GFR (MDRD) Af Amer 64, Est GFR (MDRD) Non-Af 53 L, BUN/Creatinine Ratio 57.1 H, Glucose 131 H, Calcium 9.0, Total Bilirubin 0.60, AST 52 H, ALT 28, Alkaline Phosphatase 47, Total Protein 6.2 L, Albumin 2.3 L, Globulin 3.9, Albumin/Globulin Ratio 0.6 L Physical Exam Const alert and no apparent distress Constitutional Narrative: Patient appears her stated age General Appearance: cooperative, well kempt and well developed Orientation / Consciousness: awake, oriented to person, oriented to place and oriented to time HEENT normocephalic, head/scalp atraumatic and moist oral mucous membranes Head and Scalp: normocephalic Eyes PERRL, EOMs intact bilaterally and conjunctivae normal Neck nuchal rigidity, supple, no JVD and thyroid normal General: trachea midline Resp normal respiratory effort, no retractions, no use of accessory muscles and clear to auscultation bilaterally Auscultation: Negative for rales, rhonchi or wheezes Cardio regular rate, regular rhythm, S1 normal heart sound, S2 normal heart sound, no murmurs, no rub and no gallops GI normal to inspection, nondistended, normoactive bowel sounds, soft to palpation, non-tender and non-distended Extremity no clubbing, cyanosis or edema Skin no rashes or lesions noted General Skin Exam: no breakdown Neuro CN's II-XII intact bilaterally, no focal motor deficits and no sensory deficits noted Sensorium / Orientation: awake and alert Speech: speech normal Psych Psych Narrative: Patient exhibits confusion at times Assessment & Plan Assessment/Plan (1) Adult failure to thrive: PLAN: 1. COVID-19 pneumonia-patient is on Decadron or remdesivir at this time #2 acute hypoxic respiratory failure secondary to #1-patient's pulse ox will be monitored, oxygen will be adjusted if needed #3 chronic kidney disease stage IIIb-labs will be monitored #4 metabolic encephalopathy-secondary to COVID-19 pneumonia-patient takes her oxygen off frequently, this makes care, prognosis, and medical management difficult nurses are monitoring the patient's pulse oximetry readings Charges/Coding Visit Charges Inpatient E&M: 43892 Subs Hosp L2
[2021-11-12] MEDS: Haloperidol Lactate 5 MG/ML Vial 2 MG IM (23:29)
[2021-11-13] VITALS (12 sets, daily range): BP systolic 114–147; BP diastolic 56–64; PULSE 52–65; RESP 18–24; TEMP 36.3–36.6; O2SAT 67–94
[2021-11-13] MEDS: Acetaminophen 325 MG Tablet 650 MG PO ×2 (05:43→13:15)
--- NOTE | 2021-11-13 06:12 | NURSING ---
Notified son Darryl Driscoll that pt continued to pull nc off through the night and is now requiring more oxygen. Order was given by to placed pt in soft wrist restraints. Darryl is agreeable for mother to be placed in wrist restraints.
--- NOTE | 2021-11-13 06:43 | WOUNDNOTE ---
soft wrist restraints applied as per order to prevent patient from pulling O2 off. O2 remains at 13L high flow. pulse ox maintaining in the low 90's. attends remains dry at this time. pt denies further needs. still c/o mild headache after Tylenol was given.
[2021-11-13 06:55] LABS: Hematocrit 39.1 % (37-47); Hemoglobin 13.4 g/dL (12.0-15.0); Mean Corp Hgb Conc 34.3 g/dL (32-36); Mean Corpuscular Hgb 29.3 pg (27.0-32.0); Mean Corpuscular Volume 85.6 fL (81-99); Mean Platelet Vol. 11.4 fl (6.2-12.0); Platelet Count 202 K/mm3 (150-450); Red Blood Count 4.57 M/mm3 (4.2-5.4); White Blood Count 7.6 K/mm3 (4.4-11.0)
[2021-11-13 07:15] LABS: ALB/GLOB Ratio 0.6 RATIO (0.9-2.4); AST(SGOT) 43 U/L (15-37); Alanine Aminotransfer ALT/SGPT 23 U/L (13-56); Albumin, Serum 2.2 g/dL (3.2-5.0); Alkaline Phosphatase 49 U/L (45-117); Anion Gap 7 (5-15); BUN 48 mg/dL (7-18); BUN/Creat Ratio 55.7 RATIO (10-20); Calcium,Total 8.6 mg/dL (8.5-10.1); Chloride 106 mmol/L (98-107); Creatinine, Serum 0.86 mg/dL (0.55-1.02); EST Glomerular Filtration Rate 67 mL/min (>60); Est Glom Filt Rate - Afr Amer 81 mL/min (>60); Estimated Creatinine Clearance 33.96 ml/min; Globulin 3.9 g/dL (2.2-4.2); Glucose 128 mg/dL (74-106); Potassium 4.4 mmol/L (3.5-5.1); Protein, Total 6.1 g/dL (6.4-8.2); Sodium Level 138 mmol/L (136-145)
[2021-11-13] MEDS: Enoxaparin 30 MG/0.3 ML Syringe SC (08:01)
[2021-11-13] MEDS: dexAMETHasone 4 MG Tablet 6 MG PO (08:02)
[2021-11-13] MEDS: Tacrolimus Anhydrous 1 MG Capsule PO ×2 (08:03→19:09)
[2021-11-13] MEDS: Aspirin 81 MG TAB.CHEW PO (08:05)
--- NOTE | 2021-11-13 09:27 | NURSING ---
Soft wrist restraints were removed so patient could feed herself. She finished her meal and was fidgeting in bed. sp02 was in the 70's and this RN entered room and found patient with 02 off and trying to move [id number] table away from her. 02 reapplied and was moved to 15L. This RN reinforced as to why she needs to wear her 02. ROM performed and I/S done in room with patient. Soft wrist restraints were reapplied and patient was instructed why they were needed. Will continue to monitor.
--- NOTE | 2021-11-13 12:39 | CASEMGMT ---
Social Work As per physician, pt is not ready for discharge today. Pt is now on 13L of O2. YANET called Catalina at [facility] to let her know, updates faxed. YANET will continue to follow. LOLIS Tanner
--- NOTE | 2021-11-13 13:00 | NURSING ---
Patient was assisted up to chair. Trial removal of soft wrist restraints at this time.
--- NOTE | 2021-11-13 16:46 | PCS.PANDOC ---
PANDEMIC DOCUMENTATION INITIATED: Date: 06/19/2021 Time: 189911/07/21 0384
--- NOTE | 2021-11-13 19:37 | PN.HOSP_ITS ---
Subjective Subjective Patient was seen and examined today, she follows some directions appropriately but is confused and takes off her oxygen frequently. I talked at length with her daughter by phone today, her daughter is POA, her daughter states that the patient has had dementia for approximately 6 to 7 years, she lives alone but the family is at odds with trying to get her to go to a facility for long-term care- she states her brother does not want it to happen but that she is POA and she feels that it is best for the patient. Patient is currently on 12 L via nasal cannula. I talked to the daughter about CODE STATUS tonight, the daughter stated that she wanted her to be a DNR CC arrest without intubation after discussion with her. Objective Data Objective Data Vital Signs: Vital Signs Temp Pulse Resp BP Pulse Ox 97.6 F L 65 22 H 141/64 H 94 11/13/21 18:06 11/13/21 18:06 11/13/21 18:06 11/13/21 18:06 11/13/21 18:06 Oxygen Flow Rate (L/min) 12 Oxygen Delivery Method High Flow Weight: 43.4 kg Body Mass Index (BMI) 18.3 Intake & Output: Intake and Output for Last 24 Hours 11/11/21 11/12/21 11/13/21 23:59 23:59 23:59 Intake Total 350 / 350 1030 / 1030 600 / 600 Output Total 900 / 900 Balance -550 / -550 1030 / 1030 600 / 600 Lab / Micro Data Result Diagrams: 11/13/21 06:30 11/13/21 06:30 Labs: Laboratory Results - last 24 hr 11/13/21 06:30: WBC 7.6, RBC 4.57, Hgb 13.4, Hct 39.1, MCV 85.6, MCH 29.3, MCHC 34.3, RDW Std Deviation 44.0 H, RDW Coeff of Noe 14.0, Plt Count 202, MPV 11.4 11/13/21 06:30: Sodium 138, Potassium 4.4, Chloride 106, Carbon Dioxide 25.0, Anion Gap 7, BUN 48 H, Creatinine 0.86, Estim Creat Clear Calc 33.96, Est GFR (MDRD) Af Amer 81, Est GFR (MDRD) Non-Af 67, BUN/Creatinine Ratio 55.7 H, Glucose 128 H, Calcium 8.6, Total Bilirubin 0.70, AST 43 H, ALT 23, Alkaline Phosphatase 49, Total Protein 6.1 L, Albumin 2.2 L, Globulin 3.9, Albumin/Globulin Ratio 0.6 L Physical Exam Const alert and no apparent distress Constitutional Narrative: Patient appears her stated age General Appearance: cooperative, well kempt and well developed Orientation / Consciousness: awake, oriented to person, oriented to place and oriented to time HEENT normocephalic, head/scalp atraumatic and moist oral mucous membranes Head and Scalp: normocephalic Eyes PERRL, EOMs intact bilaterally and conjunctivae normal Neck nuchal rigidity, supple, no JVD and thyroid normal General: trachea midline Resp normal respiratory effort, no retractions, no use of accessory muscles and clear to auscultation bilaterally Auscultation: Negative for rales, rhonchi or wheezes Cardio regular rate, regular rhythm, S1 normal heart sound, S2 normal heart sound, no murmurs, no rub and no gallops GI normal to inspection, nondistended, normoactive bowel sounds, soft to palpation, non-tender and non-distended Extremity normal to inspection and no clubbing, cyanosis or edema Skin no rashes or lesions noted General Skin Exam: no breakdown Neuro CN's II-XII intact bilaterally, no focal motor deficits and no sensory deficits noted Neuro Narrative: Patient is confused Sensorium / Orientation: awake and alert Speech: speech normal Psych Psych Narrative: Patient is confused Assessment & Plan Assessment/Plan (1) COVID-19: (2) Adult failure to thrive: PLAN: 1. COVID-19 pneumonia-patient is on Decadron or remdesivir at this time #2 acute hypoxic respiratory failure secondary to #1-patient's pulse ox will be monitored, oxygen will be adjusted if needed #3 chronic kidney disease stage IIIb-labs will be monitored as needed #4 Dementia-this was confirmed after talking with the patient's daughter today by phone, patient is now a DNR CC arrest without intubation. Daughter would like the patient placed in a long-term care facility at the time of discharge. Daughter is aware that the patient is very ill with COVID-19. Daughter stated that the patient was taken by her son to get a COVID vaccination, patient then left the area where the COVID vaccinations were given out and went back to her son telling her son that she already had the vaccination. Charges/Coding Visit Charges Inpatient E&M: 04509 Subs Hosp L2
[2021-11-13] MEDS: Haloperidol Lactate 5 MG/ML Vial 2 MG IM (20:31)
[2021-11-14] VITALS (9 sets, daily range): BP systolic 108–148; BP diastolic 49–108; PULSE 54–82; RESP 20–24; TEMP 36.2–36.6; O2SAT 75–94
--- NOTE | 2021-11-14 02:40 | NURSING ---
Pt taking O2 off again. pulse ox down to 79%. O2 reapplied and pulse ox is slowly coming up. pt is currently 88% on 15L high flow.
--- NOTE | 2021-11-14 02:44 | NURSING ---
Pulse ox up to 93% 15L high flow
--- NOTE | 2021-11-14 05:54 | NURSING ---
Pulse ox maintaining at 94% on 15L high flow with NRB. pt drops rapidly when O2 removed. Pt still constantly removing NC and NRB mask.
[2021-11-14] MEDS: Tacrolimus Anhydrous 1 MG Capsule PO ×2 (10:11→20:30)
[2021-11-14] MEDS: Aspirin 81 MG TAB.CHEW PO (10:11)
[2021-11-14] MEDS: Enoxaparin 30 MG/0.3 ML Syringe SC (10:11)
[2021-11-14] MEDS: dexAMETHasone 4 MG Tablet 6 MG PO (10:11)
[2021-11-14] MEDS: Acetaminophen 325 MG Tablet 650 MG PO ×2 (13:26→20:30)
--- NOTE | 2021-11-14 15:45 | CASEMGMT ---
Social Work Pt's son called in, spoke w/RN and said he is the POA and doesn't believe what his sister, pt's daughter is saying, wants to speak to the doctor. SW called son Darryl. SW looked through chart, we have no POA documentation on file here. SW called son Darryl, inquired about POA documents. He is not certain if they have documents or not, states his mom listed him as the first contact. SW explained in our system it is not clear, however without POA documents he and pt's daughter would need to make decisions together. SW explained we have been speaking w/the daughter as initially pt was going to go to her home, and then it became clear that she was going to need to go to a senior living. He states that is fine, he just wanted to speak to the doctor as he states that my sister has my mom half . Which may be true. SW explained will reach out to the physician. SW spoke w/physician, he plans to continue speaking w/the daughter, but would be open to a family meeting. SW called pt's daughter, she states she is the POA and will get the papers to the hospital. She states her brother has not spoken to her about what is going on, and states she is not interested in having a family meeting. YANET explained once we have the POA papers, SW will speak w/her again, if she wants SW to call her brother SW will do so. YANET explained without papers decisions need made together. She states understanding. She is going to try to fax the papers to this SW. YANET will continue to follow, awaiting POA papers. LOLIS Tanner
--- NOTE | 2021-11-14 19:53 | PN.HOSP_ITS ---
Subjective Subjective Patient was seen and examined today, she continues to require oxygen at 15 L today, she takes it off frequently however. I talked with the patient's daughter who states that she is the patient's POA, she would not like the patient restrained in order to keep the oxygen on and she states if she takes it off and she happens to she is okay with this. Patient is a DNR CC arrest with no intubation. business services sales agent received a phone call from the patient's son today, he inquired as to how she was doing and stated that his sister lies and he cannot trust what his sister says. business services sales agent contacted the daughter and asked for proof of her POA over the patient which she said she will provide. Objective Data Objective Data Vital Signs: Vital Signs Temp Pulse Resp BP Pulse Ox 97.2 F L 82 20 H 108/91 H 94 11/14/21 18:09 11/14/21 18:09 11/14/21 18:09 11/14/21 18:09 11/14/21 18:09 Oxygen Flow Rate (L/min) 15 Oxygen Delivery Method High Flow Weight: 42.683 kg Body Mass Index (BMI) 18.3 Intake & Output: Intake and Output for Last 24 Hours 11/12/21 11/13/21 11/14/21 23:59 23:59 23:59 Intake Total 1030 / 1030 800 / 800 225 / 225 Output Total 200 / 200 Balance 1030 / 1030 800 / 800 25 / 25 Lab / Micro Data Result Diagrams: 11/13/21 06:30 11/13/21 06:30 Physical Exam Const alert and no apparent distress Constitutional Narrative: Patient is confused General Appearance: cooperative, well kempt and well developed Orientation / Consciousness: awake, oriented to person, oriented to place and or iented to time HEENT normocephalic and moist oral mucous membranes Eyes PERRL, EOMs intact bilaterally and conjunctivae normal Neck nuchal rigidity, supple, no JVD and thyroid normal General: trachea midline Resp normal respiratory effort, no retractions, no use of accessory muscles and clear to auscultation bilaterally Auscultation: Negative for rales, rhonchi or wheezes Cardio regular rate, regular rhythm, S1 normal heart sound, S2 normal heart sound, no murmurs, no rub and no gallops GI normal to inspection, nondistended, normoactive bowel sounds, soft to palpation, non-tender and non-distended Extremity normal to inspection and no clubbing, cyanosis or edema Skin no rashes or lesions noted General Skin Exam: no breakdown Neuro CN's II-XII intact bilaterally, no focal motor deficits and no sensory deficits noted Neuro Narrative: Patient is confused Sensorium / Orientation: awake and alert Psych Psych Narrative: Patient is confused Assessment & Plan Assessment/Plan (1) COVID-19: (2) Adult failure to thrive: PLAN: 1. COVID-19 pneumonia-patient is on Decadron or remdesivir at this time #2 acute hypoxic respiratory failure secondary to #1-patient's pulse ox will be monitored, oxygen will be adjusted if needed #3 chronic kidney disease stage IIIb-labs will be monitored as needed #4 Dementia-this was confirmed after talking with the patient's daughter today by phone, per daughter's request, patient will not be restrained to keep her oxygen on. This complicates care, course, and prognosis. Prognosis is guarded secondary to the patient's dementia, age, and COVID- pneumonia. Charges/Coding Visit Charges Inpatient E&M: 28228 Subs Hosp L2
[2021-11-15] VITALS (16 sets, daily range): BP systolic 115–160; BP diastolic 60–88; PULSE 61–77; RESP 22–36; TEMP 36.3–36.9; O2SAT 83–99
[2021-11-15] MEDS: Metoprolol(XL)Succ 50 MG Tablet PO (10:36)
[2021-11-15] MEDS: Tacrolimus Anhydrous 1 MG Capsule PO ×2 (10:36→21:51)
[2021-11-15] MEDS: Enoxaparin 40 MG/0.4 ML Syringe SC (10:36)
[2021-11-15] MEDS: dexAMETHasone 4 MG Tablet 6 MG PO (10:36)
[2021-11-15] MEDS: Aspirin 81 MG TAB.CHEW PO (10:37)
--- NOTE | 2021-11-15 16:07 | CASEMGMT ---
Social Work SW received via fax pt's POA for Healthcare. The form has the pt herself listed as her own POA, then and daughter third. SW called the commercial real estate attorney's office, to confirm that this document sent over is accurate, and it is. LOLIS Tanner
--- NOTE | 2021-11-15 19:14 | PN.HOSP_ITS ---
Subjective Subjective Patient was seen and examined today, at the time of my examination, she had her oxygen off and was confused. Patient has dementia and this is her normal state of mind. Her daughter who is the POA is aware that the patient may be pulling off her oxygen and could secondary to this, patient is a DNR CC arrest with no intubation. Patient is supposed to be on oxygen at 15 L/min. Objective Data Objective Data Vital Signs: Vital Signs Temp Pulse Resp BP Pulse Ox 98.5 F 70 28 H 142/78 H 97 11/15/21 17:55 11/15/21 17:55 11/15/21 17:55 11/15/21 17:55 11/15/21 17:55 Oxygen Flow Rate (L/min) 15 Oxygen Delivery Method High Flow Weight: 42.5 kg Body Mass Index (BMI) 18.3 Intake & Output: Intake and Output for Last 24 Hours 11/13/21 11/14/21 11/15/21 23:59 23:59 23:59 Intake Total 800 / 800 225 / 225 600 / 600 Output Total 200 / 200 Balance 800 / 800 25 / 25 600 / 600 Medical Nutrition Assessment Dietitian: Malnutrition Criteria Met Start: 11/15/21 11:36 Freq: Status: Active Protocol: Document 11/15/21 11:36 RMA (Rec: 11/15/21 11:36 RMA [id number]) Nutrition Malnutrition Evidence of Malnutrition Exists Yes Malnutrition (severe): Acute Illness/Injury Evidenced By Suboptimal Energy Intake ( Severe),Weight Loss (Severe) Intake Problem Inadequate Oral Intake Etiology r/t acute illness/poor appetite; dependent at meals/ total feed Signs/Symptoms as evidenced by nursing reports of pt consuming <50% at meals, refusing meals and BMI 18.3 with wt loss ~1.1 Kg x 3 days Status Active Problem Clinical Problem Acute Disease or Injury Related Malnutrition Etiology Severe protein/calorie malnutrition in the context of acute illness related to inadequate oral intake Signs/Symptoms as evidenced by 2-3% wt loss x 3 days, BMI 18.3, refusal of PO at meals, PO meeting less than 50% estimated nutrition needs Status Active Problem Recommendation Dietitian Recommendations/Changes Continue regular diet as tolerated; will continue 8oz ensure enlive w/ breakfast, ensure pudding or magic cup w/ lunch and dinner for additional calories/protein if consumed. Consider enteral nutrition support as appropriate given malnutrition and wt loss/poor PO at meals. Lab / Micro Data Result Diagrams: 11/13/21 06:30 11/13/21 06:30 Physical Exam Const alert Constitutional Narrative: Patient is alert but confused, she is not agitated General Appearance: cooperative, well kempt and well developed Orientation / Consciousness: awake, oriented to person, oriented to place and oriented to time HEENT normocephalic, head/scalp atraumatic and moist oral mucous membranes Head and Scalp: normocephalic Eyes PERRL, EOMs intact bilaterally and conjunctivae normal Neck nuchal rigidity, supple, no JVD, thyroid normal and no carotid bruits General: trachea midline Resp normal respiratory effort, no retractions, no use of accessory muscles and clear to auscultation bilaterally Auscultation: Negative for rales, rhonchi or wheezes Cardio regular rate, regular rhythm, S1 normal heart sound, S2 normal heart sound, no murmurs, no rub and no gallops GI normal to inspection, nondistended, normoactive bowel sounds, soft to palpation, non-tender and non-distended Extremity no clubbing, cyanosis or edema Skin no rashes or lesions noted General Skin Exam: no breakdown Neuro CN's II-XII intact bilaterally, no focal motor deficits and no sensory deficits noted Neuro Narrative: Patient is alert, she is confused, she is not agitated Sensorium / Orientation: awake and alert Psych Psych Narrative: Patient has obvious cognitive impairment Assessment & Plan Assessment/Plan (1) Pneumonia due to COVID-19 virus: (2) COVID-19: (3) Adult failure to thrive: PLAN: 1. COVID-19 pneumonia-patient is on Decadron, she is no longer on remdesivir having completed a course. #2 acute hypoxic respiratory failure secondary to #1-patient's pulse ox will be monitored, oxygen will be adjusted if needed, it will be a challenge to have the patient keep her oxygen on due to her dementia, again patient is a DNR CC arrest no intubation. #3 chronic kidney disease stage IIIb-labs will be monitored as needed #4 Dementia-this was confirmed after talking with the patient's daughter by phone, per daughter's request, patient will not be restrained to keep her oxygen on. This complicates care, course, and prognosis. Prognosis is guarded secondary to the patient's dementia, age, and COVID- pneumonia. Charges/Coding Visit Charges Inpatient E&M: 65405 Subs Hosp L2
[2021-11-15] MEDS: Acetaminophen 325 MG Tablet 650 MG PO (23:37)
[2021-11-15] MEDS: Haloperidol Lactate 5 MG/ML Vial 2 MG IM (23:38)
[2021-11-16] VITALS (13 sets, daily range): BP systolic 129–151; BP diastolic 64–97; PULSE 52–80; RESP 20–36; TEMP 36.2–36.8; O2SAT 90–96
[2021-11-16] MEDS: Aspirin 81 MG TAB.CHEW PO (09:20)
[2021-11-16] MEDS: dexAMETHasone 4 MG Tablet 6 MG PO (09:20)
[2021-11-16] MEDS: Enoxaparin 40 MG/0.4 ML Syringe SC (09:20)
[2021-11-16] MEDS: Metoprolol(XL)Succ 50 MG Tablet PO (09:21)
[2021-11-16] MEDS: Tacrolimus Anhydrous 1 MG Capsule PO ×2 (09:21→21:26)
--- NOTE | 2021-11-16 11:36 | CASEMGMT ---
Social Work SW called daughter Cheryl. She states she is with her dad, pt's at present, had this SW on speaker phone. SW let Cheryl know that we did receive the POA papers, it has the pt herself listed first, then pt's , then Cheryl. SW explained pt's son is not on the document at all, Cheryl was aware. SW inquired if she and pt's are in agreement, states yes. She states she was at his house helping him out. SW explained we can continue to communicate with Cheryl at this time, family in agreement with this. SW also offered support to and daughter. SW then called [facility], spoke w/Sandee. SW let her know pt is not ready for discharge, still on 15L of oxygen. SW explained will continue to let them know what is going on w/pt. Updates faxed. SW will to continue to follow. LOLIS Tanner
--- NOTE | 2021-11-16 16:16 | NURSING ---
Pt up in chair. assisted patient in making phone call to Matt. patient seems to perk up after talking with him. pt does seem to be having a difficult time talking d/t being tired. Did talk with him for a few minutes. warm blanket provided. call light in reach. denies further needs at this time.
--- NOTE | 2021-11-16 17:36 | NURSING ---
Pt up in chair eating dinner. patient had the O2 tubing bundled up in her hand tightly. straightened the tubing back out. patient remains at 94% on 15L high flow.
--- NOTE | 2021-11-16 18:42 | PN.HOSP_ITS ---
Subjective Subjective Patient was seen and examined today, she is currently on 15 L of oxygen via nasal cannula, patient appears comfortable, I talked briefly with the patient's daughter today by phone-she was going to call me back when she was with her father but she never returned the phone call. We were going to discuss whether to make the patient hospice or continue to give the patient treatment at this point, I think it is unlikely the patient will improve substantially, nursing is having problems with the patient pulling off her oxygen and the daughter is aware of this and the daughter feels that if she pulls her oxygen off and its not detected, she is resigned that the patient will . Objective Data Objective Data Vital Signs: Vital Signs Temp Pulse Resp BP Pulse Ox 97.2 F L 65 20 H 151/79 H 96 11/16/21 17:40 11/16/21 17:40 11/16/21 17:40 11/16/21 17:40 11/16/21 17:40 Oxygen Flow Rate (L/min) 15 Oxygen Delivery Method High Flow Weight: 41.4 kg Body Mass Index (BMI) 18.3 Intake & Output: Intake and Output for Last 24 Hours 11/14/21 11/15/21 11/16/21 23:59 23:59 23:59 Intake Total 225 / 225 600 / 600 250 / 250 Output Total 200 / 200 Balance 25 / 25 600 / 600 250 / 250 Medical Nutrition Assessment Dietitian: Malnutrition Criteria Met Start: 11/15/21 11:36 Freq: Status: Active Protocol: Document 11/15/21 11:36 RMA (Rec: 11/15/21 11:36 RMA [id number]) Nutrition Malnutrition Evidence of Malnutrition Exists Yes Malnutrition (severe): Acute Illness/Injury Evidenced By Suboptimal Energy Intake ( Severe),Weight Loss (Severe) Intake Problem Inadequate Oral Intake Etiology r/t acute illness/poor appetite; dependent at meals/ total feed Signs/Symptoms as evidenced by nursing reports of pt consuming <50% at meals, refusing meals and BMI 18.3 with wt loss ~1.1 Kg x 3 days Status Active Problem Clinical Problem Acute Disease or Injury Related Malnutrition Etiology Severe protein/calorie malnutrition in the context of acute illness related to inadequate oral intake Signs/Symptoms as evidenced by 2-3% wt loss x 3 days, BMI 18.3, refusal of PO at meals, PO meeting less than 50% estimated nutrition needs Status Active Problem Recommendation Dietitian Recommendations/Changes Continue regular diet as tolerated; will continue 8oz ensure enlive w/ breakfast, ensure pudding or magic cup w/ lunch and dinner for additional calories/protein if consumed. Consider enteral nutrition support as appropriate given malnutrition and wt loss/poor PO at meals. Lab / Micro Data Result Diagrams: 11/13/21 06:30 11/13/21 06:30 Physical Exam Narrative alert Constitutional Narrative: Patient is alert but confused, she is not agitated General Appearance: cooperative, well kempt and well developed Orientation / Consciousness: awake HEENT normocephalic, head/scalp atraumatic and moist oral mucous membranes Head and Scalp: normocephalic Eyes PERRL, EOMs intact bilaterally and conjunctivae normal Neck nuchal rigidity, supple, no JVD, thyroid normal and no carotid bruits General: trachea midline Resp normal respiratory effort, no retractions, no use of accessory muscles and clear to auscultation bilaterally Auscultation: Negative for rales, rhonchi or wheezes Cardio regular rate, regular rhythm, S1 normal heart sound, S2 normal heart sound, no murmurs, no rub and no gallops GI normal to inspection, nondistended, normoactive bowel sounds, soft to palpation, non-tender and non-distended Extremity no clubbing, cyanosis or edema Skin no rashes or lesions noted General Skin Exam: no breakdown Neuro CN's II-XII intact bilaterally, no focal motor deficits and no sensory deficits noted Neuro Narrative: Patient is alert, she is confused, she is not agitated Sensorium / Orientation: awake and alert Psych Psych Narrative: Patient has obvious cognitive impairment Assessment & Plan Assessment/Plan (1) COVID-19: (2) Pneumonia due to COVID-19 virus: (3) Adult failure to thrive: PLAN: 1. COVID-19 pneumonia-patient is on Decadron, she is no longer on remdesivir having completed a course. #2 acute hypoxic respiratory failure secondary to #1-patient's pulse ox will be monitored, oxygen will be adjusted if needed, it will be a challenge to have the patient keep her oxygen on due to her dementia, again patient is a DNR CC arrest no intubation. #3 chronic kidney disease stage IIIb-labs will be monitored as needed #4 Dementia-complicates care, course, medical treatment, and prognosis. Prognosis is guarded secondary to the patient's dementia, age, and COVID- pneumonia. Charges/Coding Visit Charges Inpatient E&M: 41822 Subs Hosp L2
[2021-11-17] VITALS (9 sets, daily range): BP systolic 150–153; BP diastolic 59–67; PULSE 25–84; RESP 20–36; TEMP 35.8–36.3; O2SAT 50–95
[2021-11-17] MEDS: Haloperidol Lactate 5 MG/ML Vial 2 MG IM (07:53)
[2021-11-17] MEDS: Metoprolol(XL)Succ 50 MG Tablet PO (09:47)
[2021-11-17] MEDS: Enoxaparin 40 MG/0.4 ML Syringe SC (09:47)
[2021-11-17] MEDS: dexAMETHasone 4 MG Tablet 6 MG PO (09:47)
[2021-11-17] MEDS: Tacrolimus Anhydrous 1 MG Capsule PO (09:47)
[2021-11-17] MEDS: Aspirin 81 MG TAB.CHEW PO (09:48)
--- NOTE | 2021-11-17 11:13 | NURSING ---
Daughter Kayli called and does not want her brother to be notified she states he is drunk at the moment. Per her request she wants a tesfaye to visit.
--- NOTE | 2021-11-17 11:18 | PCM.HOSP.N ---
Hospitalist Note I had a disc patient with the patient's daughter who is acting as her POA, the daughter states that she had a discussion with her father about Rowena's care, the father would like Rowena's oxygen be turned down and her to be made comfortable and let her pass. I asked the daughter if she was agreeable to this approach and the daughter said yes- the daughter does not want to come up and see the patient today and she says her father is debilitated and cannot walk due to COVID and he would not want to come up. I told her that we would start the process probably within a short period of time. I have asked nursing to call the daughter back and ask the daughter whether we should notify the son that this is occurring. Orders were entered for comfort drugs, patient will be turned down to lower flow nasal cannula oxygen.
[2021-11-17] MEDS: LORazepam 2 MG/ML Syringe 3 MG IM (12:15)
[2021-11-17] MEDS: morphine 10 MG/ML Syringe IM (12:16)
[2021-11-17] MEDS: morphine 10 MG/ML Syringe 6 MG IM ×3 (13:28→23:56)
--- NOTE | 2021-11-17 14:32 | CASEMGMT ---
Social Work Note SW updated that pt's daughter and have chosen to make pt comfort care. YANET placed a call to [facility] and spoke with Sandee and updated her to disregard referral as pt will be passing at [facility]. YANET placed a call to pt's daughter Boni, introduced self and role at [facility]. SW provided support to Boni. Boni denied additional needs or concerns at this time. Carlee Truong STEELER, CRESTER
--- NOTE | 2021-11-17 15:35 | NURSING ---
Pt resting in bed with eyes closed. now unresponsive. no distress noted at this time.
--- NOTE | 2021-11-17 17:22 | PCM.PN.HOSP ---
Subjective Subjective Patient was seen and examined today, she is still requiring high flow oxygen at 15 L, patient remains confused, I talked to the daughter by phone-she stated she talked to her father and her father just wants the patient to go quietly and is not against turning her oxygen down. The daughter agrees with this, I have placed the patient on nasal cannula oxygen, I have given her IM morphine and Ativan due to lack of IV access. At the time of this dictation, patient is off oxygen with pulse ox in the 30s and her heart rate in the 40s. She is still taking shallow respirations, she does not appear to be in any discomfort. Objective Data Objective Data Vital Signs: Vital Signs Temp Pulse Resp BP Pulse Ox 97.3 F L 84 20 H 150/59 H 84 11/17/21 07:49 11/17/21 09:47 11/17/21 09:08 11/17/21 09:47 11/17/21 10:38 Oxygen Flow Rate (L/min) 15 Oxygen Delivery Method High Flow Weight: 41.2 kg Body Mass Index (BMI) 18.3 Intake & Output: Intake and Output for Last 24 Hours 11/15/21 11/16/21 11/17/21 23:59 23:59 23:59 Intake Total 600 / 600 250 / 250 150 / 150 Balance 600 / 600 250 / 250 150 / 150 Medical Nutrition Assessment Dietitian: Malnutrition Criteria Met Start: 11/15/21 11:36 Freq: Status: Active Protocol: Document 11/15/21 11:36 RMA (Rec: 11/15/21 11:36 RMA [id number]) Nutrition Malnutrition Evidence of Malnutrition Exists Yes Malnutrition (severe): Acute Illness/Injury Evidenced By Suboptimal Energy Intake ( Severe),Weight Loss (Severe) Intake Problem Inadequate Oral Intake Etiology r/t acute illness/poor appetite; dependent at meals/ total feed Signs/Symptoms as evidenced by nursing reports of pt consuming <50% at meals, refusing meals and BMI 18.3 with wt loss ~1.1 Kg x 3 days Status Active Problem Clinical Problem Acute Disease or Injury Related Malnutrition Etiology Severe protein/calorie malnutrition in the context of acute illness related to inadequate oral intake Signs/Symptoms as evidenced by 2-3% wt loss x 3 days, BMI 18.3, refusal of PO at meals, PO meeting less than 50% estimated nutrition needs Status Active Problem Recommendation Dietitian Recommendations/Changes Continue regular diet as tolerated; will continue 8oz ensure enlive w/ breakfast, ensure pudding or magic cup w/ lunch and dinner for additional calories/protein if consumed. Consider enteral nutrition support as appropriate given malnutrition and wt loss/poor PO at meals. Lab / Micro Data Result Diagrams: 11/13/21 06:30 11/13/21 06:30 Physical Exam Narrative On examination she appeared somnolent, she does not appear to be in any distress. Vital signs as documented. Skin warm and dry and without overt rashes. Neck without JVD, thyroid appears normal, trachea is midline, neck is supple. Lungs clear, patient has rapid shallow respirations Heart exam notable for regular rhythm-bradycardic, normal sounds and absence of murmurs, rubs or gallops. Abdomen unremarkable and without evidence of organomegaly, masses, or abdominal aortic enlargement, bowel sounds are present in all 4 quadrants, no abdominal tenderness was noted. Extremities nonedematous, no cyanosis was noted, no clubbing was noted. Neuro: Cranial nerves II through XII are grossly intact, no focal motor deficits were noted, sensation to light touch and pinprick is intact, motor exam 5/5 throughout. Psych: Patient is somnolent and does not appear to be in any distress. Assessment & Plan Assessment/Plan (1) COVID-19: (2) Pneumonia due to COVID-19 virus: (3) Adult failure to thrive: PLAN: 1. COVID-19 pneumonia-patient's care status will be changed to comfort care, she will be given medications for comfort and her oxygen was removed. I feel is imminent. #2 acute hypoxic respiratory failure secondary to #1-patient is comfort care, she has been taken off oxygen #3 chronic kidney disease stage IIIb #4 Dementia is imminent at this time Charges/Coding Visit Charges Inpatient E&M: 77030 Subs Hosp L2
--- NOTE | 2021-11-17 21:27 | NURSING ---
Patient is exhibiting labored breathing, moaning slightly, Given morphine IM per order. HR is irregular at 50 bpm, resp rate is 30, spo2 55%, skin is mottled, LS dim. Will continue to monitor frequently.
--- NOTE | 2021-11-18 00:03 | NURSING ---
Patient is struggling right now, somewhere between a moan and a grunt with each breath. Unable to check spo2 d/t poor circulation, mottling is present, in both lower and upper extremities, fingers and toes are cyanotic. Sitting with her holding her hand so she knows someone is here with her. Repositioned to her back. Will continue to monitor her closely.
--- NOTE | 2021-11-18 04:14 | PCM.HOSP.N ---
Hospitalist Note Patient passed with date of 11/18/21 and time of [id number].
--- NOTE | 2021-11-18 04:15 | NURSING ---
at 0355, patient found without a pulse, verified by self and Sam Vega RN. Next of kin : Daughter Kayli notified of her mother's passing.
--- NOTE | 2021-11-18 18:59 | PCM.DEATH ---
Preliminary Cause of Preliminary Cause of Preliminary Cause of : 1. Asystole secondary to hypoxemic respiratory failure from COVID-19 pneumonia Secondary diagnosis: #1 dementia #2 acute hypoxic respiratory failure secondary to COVID-19 infection #3 COVID-19 pneumonia Date of Admission: 11/07/21 Principle Diagnosis Problem List: Active and Suspected Problems (Updated 11/08/21 @ 00:30 by Sam Vega) COVID-19 (Acute) COVID-19 (Acute) Acute encephalopathy (Acute) Pneumonia due to COVID-19 virus (Acute) Acute dehydration (Acute) Liver transplant status (Acute) Adult failure to thrive (Acute) Hospital Course This 81-year-old white female was seen in the emergency room at [facility] after being brought in by her family members due to generalized weakness, patient had a history of dementia and was not able to provide information, work-up in the emergency room revealed her BUN to be 39 with a creatinine of 1.48, urinalysis was unremarkable, chest x-ray showed bilateral infiltrates consistent with COVID-19, CT of the brain was unremarkable, CT of the chest did not demonstrate any pulmonary embolism. Patient was initially felt to be encephalopathic, further history was obtained from the patient's daughter that the patient actually had dementia. Patient required supplemental oxygen at 2 L/min via nasal cannula to maintain her pulse ox, patient was admitted to [facility], she was given Decadron and remdesivir, patient did not keep her oxygen on due to her dementia and this became a difficult situation. Conversations were carried out with the patient's daughter who confirmed that the patient was a DNR CC arrest without intubation and the daughter understood that if the patient took her oxygen off and we were not able to intervene in a timely manner the patient might . Patient's respiratory status worsened and she required high flow nasal cannula oxygen, conversation was carried out with the patient's daughter who in turn carried out conversation with the patient's who also had COVID at home, it was agreed that the patient would be a comfort care and that she would be medicated and her oxygen be turned down. On 11/17/2021, patient was medicated with Ativan and morphine, patient's oxygen was turned down and eventually the oxygen was removed, patient's pulse ox declined, on 11/18/2021 at 0355 patient was noted to be apneic and pulseless and was pronounced . Visit Charges Inpatient E&M: 48929 Disch Hosp
== END 2021-11-18 05:00 | DRG 177 ==
LOC: ED 23:07 → MS3 11-08 00:54
PROVIDERS: Family Medicine; Admitting Provider Hospitalist; Emergency Provider Emergency Medicine; PCP Internal Medicine; Visit Provider Internal Medicine
DX: U07.1 COVID-19 (principal); J96.01 Acute respiratory failure with hypoxia; J12.82 Pneumonia due to coronavirus disease 2019; Z94.4 Liver transplant status; D69.6 Thrombocytopenia, unspecified; R62.7 Adult failure to thrive; E86.0 Dehydration; F03.90 Unspecified dementia, unspecified severity, without behavioral disturbance, psychotic disturbance, mood disturbance, and anxiety; N18.32 Chronic kidney disease, stage 3b; I12.9 Hypertensive chronic kidney disease with stage 1 through stage 4 chronic kidney disease, or unspecified chronic kidney disease; Z66 Do not resuscitate; Z79.82 Long term (current) use of aspirin; Z79.899 Other long term (current) drug therapy
CPT/HCPCS: 36415; 70450; 71045; 71275; 74018; 80048; 80053; 81001; 82140; 83605; 83690; 85025; 85027; 87040; 87426; 87804; 93005; 94762; 97110; 97116; 97162; 97166; 97530; 97535; 99284; 99285; J7030; J7040; J7050; P9612; Q9967; A4216; J0248; J1940; J2405